=== PATIENT | female | born 1960 | race Caucasian/White ===

== ENCOUNTER → 2019-01-02 16:07 | Outpatient (CLI) | payer OTHER, SELFPAY ==
--- NOTE | 2019-01-02 | CYST_PTH ---
PATIENT: BINH TOBAR LOC: [facility] U#:[id number] AGE/SX: 65/F ROOM: RE01/02/[address]: Dr. Edwar Conde MD : 1960 BED: DIS: SPEC #: [id number] RECD: 01/02/19 15:18 STATUS: SEAN REWillem #: [id number] MAYRA: 01/02/19 00:[address]: Edwar Conde DEPT: SURGICAL PATHOLOGY RECD BY: Jordy Joe ENTERED: 01/05/19 10:04 SP TYPE: Cyst OTHR DR: Dr. Ivelisse Vela, [facility] Tissues: CYST Procedures: Surgery Specimen Level III HEADER OPERATION: Right index finger cyst excision PRE-OP DIAGNOSIS: Cyst, right index finger TISSUE SUBMITTED: Cyst, right index finger MICROSCOPIC DIAGNOSIS Cyst, right index finger: Ganglion cyst. FA:remigio 01/06/19 MICROSCOPIC DESCRIPTION Slides are reviewed. GROSS DESCRIPTION Received in fixative is one container labeled with the patient's name and designated cyst right index finger. The specimen consists of a portion of tamayo skin measuring 0.2 x 0.2 x 0.1 cm. The specimen is totally submitted in one cassette. / CE:remigio 01/05/19 TC:5 CPT: 86748
== END ==
PROVIDERS: Family Provider Internal Medicine; PCP Internal Medicine; Referring Provider Orthopaedic Surgery; Visit Provider Orthopaedic Surgery
DX: M25.841 Other specified joint disorders, right hand (principal)
CPT/HCPCS: 88304

== ENCOUNTER 2021-08-15 06:05 | Outpatient (CLI) | payer OTHER, SELFPAY ==
[2021-08-15 07:38] LABS: Absolute Lymphocyte Count 1.73 X10^3/uL (0.83-4.51); Absolute Neutrophil Count 3.1 X10^3/uL (2.0-7.7); Basophil# 0.02 X10^3/uL; Basophil% 0.4 % (0-1); Eosinophil# 0.18 X10^3/uL; Eosinophils% 3.2 % (0-5); Hematocrit 40.9 % (37-47); Hemoglobin 13.7 g/dL (12.0-15.0); Lymphocyte # 1.73 X10^3/ul (0.83-4.51); Mean Corp Hgb Conc 33.5 g/dL (32-36); Mean Corpuscular Hgb 30.9 pg (27.0-32.0); Mean Corpuscular Volume 92.1 fL (81-99); Mean Platelet Vol. 11.1 fl (6.2-12.0); NRBC Flagged by Analyzer 0 % (0-5); Neutrophil # 3.13 X10^3/uL (2.7-7.7); Platelet Count 267 K/mm3 (150-450); RBC Distribution Width CV 12.9 % (11.6-14.6); RBC Distribution Width SD 43.8 fl (35.1-43.9); Red Blood Count 4.44 M/mm3 (4.2-5.4); White Blood Count 5.6 K/mm3 (4.4-11.0)
[2021-08-15 08:20] LABS: ALB/GLOB Ratio 0.8 RATIO (0.9-2.4); AST(SGOT) 16 U/L (15-37); Alanine Aminotransfer ALT/SGPT 28 U/L (13-56); Albumin, Serum 3.6 g/dL (3.2-5.0); Alkaline Phosphatase 91 U/L (45-117); Anion Gap 2 (5-15); BUN 15 mg/dL (7-18); BUN/Creat Ratio 18.3 RATIO (10-20); Calcium,Total 8.7 mg/dL (8.5-10.1); Chloride 105 mmol/L (98-107); Cholesterol 276 mg/dL (200); Creatinine, Serum 0.82 mg/dL (0.55-1.02); EST Glomerular Filtration Rate 76 mL/min (>60); Est Glom Filt Rate - Afr Amer 92 mL/min (>60); Free T3 2.7 pg/mL (2.18-3.98); Globulin 4.4 g/dL (2.2-4.2); Glucose 126 mg/dL (74-106); High Density Lipoprotein 61 mg/dL; Potassium 3.6 mmol/L (3.5-5.1); Sodium Level 140 mmol/L (136-145); T4 Free Direct 1.14 ng/dL (0.76-1.46); Thyroid Stim Hormone (TSH) 1.52 uIU/mL (0.358-3.74); Triglycerides 72 mg/dL; Very Low Density Lipoprotein 14 mg/dL (5-40)
== END 2021-08-15 23:59 | disposition short-term general hospital (02) ==
PROVIDERS: PCP Internal Medicine; Referring Provider Nurse Practitioner; Visit Provider Nurse Practitioner
DX: R79.89 Other specified abnormal findings of blood chemistry (principal); Z13.220 Encounter for screening for lipoid disorders
CPT/HCPCS: 36415; 80053; 80061; 84439; 84443; 84481; 85025

== ENCOUNTER → 2023-03-13 | Outpatient (CLI) | payer OTHER, SELFPAY ==
--- NOTE | 2023-03-13 13:51 | BI_ITS ---
MAMMOGRAPHY - BILATERAL SCREENING REASON FOR EXAM: Female, 62 years old. Routine annual screening examination. PERTINENT HISTORY: Non-contributory. Prior left excisional breast biopsy. TECHNIQUE: Digital bilateral breast arthur (3D mammographic acquisition) in the CC and MLO projections. 2-D mediolateral oblique (MLO) and craniocaudad (CC) views of both breasts were obtained. CAD: Full Field Digital Mammography with Computer Added Detection was performed. COMPARISON: Comparison is made with prior outside examination dated July 12, 2009. FINDINGS: Breast Composition: The breasts are heterogeneously dense, which may obscure small masses. There are no dominant masses or suspicious calcifications. Stable benign-appearing bilateral axillary lymph nodes. No other significant abnormalities are identified. There has been no significant change since the prior study. BI/SCRN MAMM (CAD)W/ARTHUR BILAT IMPRESSION: Stable bilateral screening mammogram. Yearly follow-up mammogram recommended. (A) ASSESSMENT CATEGORY: BIRADS Category 2: Benign. A letter regarding these results will be sent to the patient by the facility within 30 days. Approximately 10% of breast cancers are not detected by mammography. A normal mammogram should not delay biopsy of a clinically suspicious abnormality. [id number] Electronically Signed: José Miguel Field MD at 14:40 EDT ,
== END | disposition home or self-care (01) ==
LOC: OPBD 13:48
PROVIDERS: PCP Internal Medicine; Referring Provider Nurse Practitioner Family; Visit Provider Nurse Practitioner Family
DX: Z12.31 Encounter for screening mammogram for malignant neoplasm of breast (principal)
CPT/HCPCS: 77063; 77067

== ENCOUNTER 2025-03-27 01:25 | Emergency (ER) | payer OTHER, SELFPAY ==
[2025-03-27 01:25] VITALS: BP 167/89; PULSE 71; RESP 16; TEMP 36.5; O2SAT 98; BMI 28.9
--- NOTE | 2025-03-27 01:44 | RAD_ITS ---
PROCEDURE: CHEST PA AND LATERAL 03/27/2025 REASON FOR EXAM: PALPITATIONS TECHNIQUE: Procedure Code: RADCXR Modality: DX Procedure: CHEST PA AND LATERAL COMPARISON: None FINDINGS: Hardware: EKG leads overlie the chest Heart: The heart size is normal. Mediastinum: The mediastinal contour is unremarkable. Lungs: The lungs are clear. Bones: The bones are unremarkable. RAD/Chest PA and Lateral IMPRESSION: No acute pulmonary process Reading Location: [id number]
--- NOTE | 2025-03-27 01:44 | EKG12_ITS ---
Test Reason : DYSRHYTHMIA Blood Pressure : */* mmHG Vent. Rate : 78 BPM Atrial Rate : 78 BPM P-R Int : 164 ms QRS Dur : 90 ms QT Int : 394 ms P-R-T Axes : 76 -18 13 degrees QTcB Int : 449 ms Normal sinus rhythm Normal ECG Confirmed by Everette Butler ([id number]), magazine editor ZACHERY ERWIN ([id number]) on 03/29/2025 1:11:55 PM Referred By: REINA Confirmed By: Everette Butler
--- NOTE | 2025-03-27 01:49 | EDS_ITS ---
HPI History of Present Illness Chief Complaint: Palpitations Narrative Narrative: Chief complaint and HPI: 64-year-old female with past medical history of proximal atrial fibrillation on metoprolol and Eliquis presents for evaluation of irregular heartbeat. Patient states for the past 2 to 3 days she feels that her heart is occasionally skipping a beat. She denies any fever, chills, shortness of breath, chest pain abdominal pain, nausea, vomiting, weakness. States she has been eating and drinking well. She did not inform her finger buff sewer at [facility]. Review of systems: See HPI Medications: As listed on the chart Allergies: As listed on the chart PFSH: Per chart Vital signs: As listed on the chart. Reviewed. Physical exam: Gen: A&O x3, no acute distress but anxious Head: Normocephalic, atraumatic Eyes: No sclera icterus, conjunctiva clear ENT: Moist mucous membranes Neck: Trachea midline, No JVD CV: RRR, no murmurs, no peripheral edema Resp: Lungs CTA BL, no w/r/c GI: Abd soft, non-distended, non-tender, no r/r/g Musc: Full ROM, no deformity Skin: Warm, dry Neuro: Alert, oriented, grossly intact, sensation intact Psych: Cooperative, anxious PFSH PFSH Medical History (Updated 03/27/25 @ 03:[address] Wagner Montejo DO) History of cardioversion (~11/2014) Hyperthyroidism Hyperlipidemia Paroxysmal atrial fibrillation Home Medications ?Medication ?Instructions ?Recorded ?Last Taken ?Type apixaban 5 mg tablet 5 mg PO BID #30 tabs 7 Unknown Rx metoprolol tartrate 50 mg tablet 50 mg PO BID #60 tabs 06/19/17 Unknown Rx Allergy/AdvReac Type Severity Reaction Status Date / Time No Known Allergies Allergy Verified 03/27/25 01:25 Family History (Updated 06/20/17 @ 15:48 by Nell Alcazar) Mother Heart disease atrial fib Brother Heart disease 2 brothers with atrial fib Surgical History (Updated 06/20/17 @ 15:47 by Nell Alcazar) H/O left breast biopsy Social History (Updated 06/20/17 @ 16:[address] Manuel Jimenez MD) Smoking Status: Never smoker alcohol intake: never substance use type: does not use EXAM Physical Exam Const Vital Signs: 03/27/25 01:25 03/27/25 01:25 03/27/25 02:25 Temperature 97.7 F L Temperature Source Temporal Pulse Rate 71 65 Respiratory Rate 16 18 Respiratory Effort Normal Non-Labored Blood Pressure 167/89 H 151/68 H Blood Pressure Mean 115 95 Pulse Ox 98 97 Oxygen Delivery Method Room Air Room Air MDM MDM MDM Narrative Medical decision making narrative: 64-year-old female with past medical history of proximal atrial fibrillation on metoprolol and Eliquis presents for evaluation of irregular heartbeat. Patient states for the past 2 to 3 days she feels that her heart is occasionally skipping a beat. She denies any fever, chills, shortness of breath, chest pain abdominal pain, nausea, vomiting, weakness. Differential diagnosis includes but is not limited to arrhythmia, electrolyte abnormality, dehydration, suspect less likely ACS. Laboratory workup ordered including chest x-ray. CBC without leukocytosis or anemia. Coagulation panel unremarkable. BMP unremarkable. Magnesium level unremarkable. Troponin unremarkable. BNP unremarkable. Patient has remained on the monitor without any arrhythmias. At this point in time, no clear etiology for her feelings of skipped heartbeats. Follow-up with finger buff sewer and PCP. Return back to ED if symptoms change or worsen. She confirmed understand the plan. Patient stable discharge home. EKG: Interpreted by me/EM physician: EKG shows normal sinus rhythm without any acute ischemic changes. Heart rate 78 QTc normal Diagnostic: Interpreted by me/EM physician: Chest x-ray without pneumonia, effusion, cardiomegaly, pneumothorax. Impression: 1. Reported skipped heartbeats Lab Data Labs: Laboratory Results - last 24 hr 03/27/25 01:38 WBC 6.4 RBC 4.38 Hgb 13.3 Hct 40.0 MCV 91.3 MCH 30.4 MCHC 33.3 RDW Std Deviation 44.6 H RDW Coeff of Rickey 13.2 Plt Count 264 MPV 10.4 Immature Gran % (Auto) 0.300 Neut % (Auto) 52.5 Lymph % (Auto) 34.5 Freeborn % (Auto) 10.1 H Eos % (Auto) 2.0 Baso % (Auto) 0.6 Absolute Neuts (auto) 3.4 Absolute Lymphs (auto) 2.22 Nucleated RBC % 0 PT 13.2 INR 1.0 APTT 25.3 Sodium 140 Potassium 4.0 Chloride 104 Carbon Dioxide 23.2 Anion Gap 13 BUN 18 Creatinine 0.88 Estim Creat Clear Calc 75.30 Est GFR (MDRD) Non-Af 73 BUN/Creatinine Ratio 20.7 H Glucose 141 H Calcium 9.1 Magnesium 2.2 Troponin T High Sens < 6 NT pro BNP II 155 Discharge Plan Triage Chief Complaint: Palpitations ED Provider: Wagner Montejo Dx/Rx/DC Orders Clinical Impression: Skipped heart beats Instructions: Arrhythmias Prescriptions: No Action apixaban 5 MG tablet 5 mg PO BID Qty: 30 0RF metoprolol tartrate 50 MG tablet 50 mg PO BID Qty: 60 0RF Primary Care Provider: Ivelisse Vela Referrals: Follow-up with your finger buff sewer [Other] - 3-5 Days Ivelisse Vela DO [Primary Care Provider] - 3-5 Days Activity Restrictions/Additional Instructions: Follow-up with your finger buff sewer. Return back to ED if symptoms change or worsen. Print Language: French Disposition Disposition: Home, Self Care
[2025-03-27 01:53] LABS: Hematocrit 40.0 % (37-47); Hemoglobin 13.3 g/dL (12.0-15.0); Immature Granulocytes Count 0.020 X10^3/uL (0.0-0.0); Mean Corp Hgb Conc 33.3 g/dL (32-36); Mean Corpuscular Volume 91.3 fL (81-99); Mean Platelet Vol. 10.4 fl (6.2-12.0); NRBC Flagged by Analyzer 0 % (0-5); Platelet Count 264 K/mm3 (150-450); RBC Distribution Width CV 13.2 % (11.6-14.6); RBC Distribution Width SD 44.6 fl (35.1-43.9); Red Blood Count 4.38 M/mm3 (4.2-5.4); White Blood Count 6.4 K/mm3 (4.4-11.0)
--- OUTSIDE RECORDS SUMMARY | 2025-03-27 01:57 | XMS RPT_ITS | CCD ---
Author Organization [facility] Care Team Providers Care Grocery Carrier Name Role Phone Everette Nielson Unavailable Unavailable Everette Nielson Unavailable Unavailable Everette Nielson Unavailable Unavailable Ivelisse Anderson Unavailable Evens Pierce Unavailable Mitra Philippe Unavailable Unavailable Unavailable Unavailable Evens Pierce Unavailable DR IVELISSE ANDERSON DO Primary Care Physician (3 ) Ivelisse Anderson DO Unavailable [phone] Evens Pierce MD Unavailable GravMitra acosta CMA Unavailable Unavailable Nurys Gleason LPN Unavailable Unavailable Unavailable Unavailable Shahid Henning LPN Unavailable Unavailable Unavailable Unavailable Terese Louis CNP Unavailable Jean Humphrey Unavailable Unavailable Primary Care Provider Unavailabl Ivelisse Fofana DO Unavailable [phone] Un[address] DR IVELISSE ANDERSON DO Primary Care Physician [phone] Terese Louis Unavailable Elizabeth Blanchard CNP Unavailable [phone] SLOAN MARSHALL MD Admitting Unavailable SLOAN MARSHALL MD Attending Unavailable SLOAN MARSHALL MD Primary Care Unavailable ONUR KITCHEN Consulting Gracevai lable PROVIDER, UNKNOWN Consulting Unavailable PROVIDER, UNKNOWN Consulting Unavailable PROVIDER, UNKNOWN Consulting Unavailable Earle Mccarty Attending Unavailable Ivelisse Anderson Referring Unavailable Ivelisse Anderson Primary Care Unavailable Allergies Allergy Classification Reported Allergen(s) Allergy Type Date of Onset Reaction(s) Facility (1 source) No Known Medication Allergies; Translations: [No Known Medication Allergies] Propensity to adverse reactions to drug (disorder) [facility] Repository Medications Current Medications Medication Drug Class(es) Dates Sig (Normalized) Sig (Original) amiodarone hydrochloride 200 mg oral tablet (2 sources) Antiarrhythmic Start: 08-17-2021 amiodarone 200 mg oral tablet Dose : 200 mg = 1 tab(s), Oral, qDay, # 90 tab(s), 0 Refill(s), Pharmacy: [facility]/pharmacy #[id number], 172.7, cm, 08/09/21 8:09:00 EST, Height, kg, 08/09/21 8:09:00 EST, Dosing Weight Start Date: 08/17/21 Status: Ordered Start: 08-09-2021 End: 08-16-2021 amiodarone 200 mg oral table t Dose : 200 mg = 1 tab(s), Oral, BID, # 14 tab(s), 0 Refill(s), Pharmacy: [facility]/pharmacy #[id number], 172.7, cm, 08/09/21 8:09:00 EST, Height, kg, 08/09/21 8:09:00 EST, Dosing Weight Start Date: 08/09/21 Stop Date: 08/16/21 Status: Ordered Co Q-10 100 mg oral capsule (1 source) Start: 09-24-2019 Co Q-10 100 mg oral capsule Dose : 100 mg = 1 cap(s), Oral, Daily, 0 Refill(s) Start Date: 09/24/19 Status: Ordered Fish Oils (2 sources) Start: 09-24-2019 take 1 mg by mouth once daily Fish Oil 1000 mg oral capsule mg = cap(s), Oral, qDay, 0 Refill(s) Start Date: 09/24/19 Status: Ordered ubidecarenone 100 mg oral capsule (1 source) Start: 09-24-2019 Co Q-10 100 mg oral capsule Dose : 100 mg = 1 cap(s), Oral, Daily, 0 Refill(s) Start Date: 09/24/19 Status: Ordered Vitamin D3 50 mcg (2000 intl units) oral capsule (2 sources) Start: 08-03-2021 Vitamin D3 50 mcg (2000 intl units) oral capsule Dose : 50 mcg = 1 cap(s), Oral, qDay, # 60 cap(s), 0 Refill(s) Start Date: 08/03/21 Status: Ordered Completed/Discontinued Medications Medication Drug Class(es) Dates Sig (Normalized) Sig (Original) amoxicillin 875 mg / clavulanate 125 mg oral tablet (16 sources) Penicillin-class Antibacterial Start: 12-06-2016 End: 12-16-2016 take 1 tablet by mouth twice daily Augmentin 875-125 MG Oral Tablet 1 Tablet BID for 10 days Quantity: 20 {Tablet} Refills: 0 Ordered: 06-Dec-2016 Radha Greene Start : 06-Dec-2016 End : 16-Dec-2016 Inactive apixaban 5 mg oral tablet (14 sources) Factor Xa Inhibitor Start: 08-18-2021 End: 03-11-2023 take 1 tablet by mouth twice daily Eliquis 5 mg oral tablet 1 (one) Tablet BID for 0 days Quantity: 60 {Tablet} Refills: 0 Ordered: 11-Mar-2023 Nurys Gleason LPN Start : 18-Aug-2021 End : 11-Mar-2023 Inactive Start: 06-19-2017 Eliquis 5 mg o ral tablet Dose : 5 mg = 1 tab(s), Oral, BID, # 60 tab(s), 4 Refill(s), Pharmacy: [facility]/pharmacy #[id number], 172.7, cm, 08/03/21 16:12:00 EST, Height, 86, kg, 08/03/21 16:12:00 EST, Dosing Weight Start Date: 08/03/21 Status: Ordered azelastine hydrochloride 0.137 mg/actuat / fluticasone propionate 0.05 mg/actuat metered dose nasal spray (16 sources) Corticosteroid, Histamine-1 Receptor Antagonist Start: 12-06-2016 End: 11-27-2018 take 1 spray(s) nasal route twice daily Dymista 137-50 MCG/ACT Nasal Suspension 1 (one) [place] In each nostril BID for 0 days Quantity: 1 {Bottle} Refills: 0 Ordered: 27-Nov-2018 Mitra Philippe CMA Start : 06-Dec-2016 End : 27-Nov-2018 Discontinued ciprofloxacin 500 mg oral tablet (20 sources) Quinolone Antimicrobial Start: 11-27-2018 End: 12-02-2018 take 1 tablet by mouth twice daily Cipro 500 MG Oral Tablet 1 (one) Tablet bid for 5 days Quantity: 10 {Tablet} Refills: 0 Ordered: 27-Nov-2018 Mirian BRICEÑO Ivelisse Santana DO Start : 27-Nov-2018 End : 02-Dec-2018 Inactive Start: 08-16-2008 End: 08-23-2008 take 1 tablet by mouth twice daily CIPRO, 250MG (Oral Tablet) 1 (one) Tablet Twice daily for 3 days Quantity: 19 {Tablet} Refills: 0 Ordered: 16-Aug-2008 KaitlinTerese brownlee Start : 16-Aug-2008 End : 23-Aug-2008 Inactive desoximetasone 2.5 mg/ml topical cream (16 sources) Corticosteroid Start: 01-13-2010 End: 06-19-2010 TOPICORT, 0.25% (External Cream) 1 (one) Cream bid for 0 days Quantity: 60 {Cream} Refills: 1 Ordered: 19-Jun-2010 Radha Dexter RN Start : 13-Jan-2010 End : 19-Jun-2010 Inactive 24 hr etodolac 400 mg extended release oral tablet (16 sources) Nonsteroidal Anti-inflammatory Drug Start: 10-19-2010 End: 03-07-2011 take 2 tablets by mouth once daily at mealtime ETODOLAC CR, 400MG (Oral Tablet Extended Release 24 Hour) 2 (two) Tablet ER 24HR qd with food for 0 days Quantity: 20 {Tablet_ER_24HR} Refills: 0 Ordered: 07-Mar-2011 Radha Dexter RN Start : 19-Oct-2010 End : 07-Mar-2011 Inactive flecainide acetate 50 mg oral tablet (20 sources) Antiarrhythmic Start: 10-12-2014 End: 11-30-2014 take 1 tablet by mouth twice daily FLECAINIDE ACETATE, 50MG (Oral Tablet) 1 (one) Tablet bid for 0 days Quantity: 60 {Tablet} Refills: 0 Ordered: 30-Nov-2014 Nurys Gleason LPN Start : 12-Oct-2014 End : 30-Nov-2014 Discontinued End: 11-02-2011 take 1 tablet by mouth twice daily FLECAINIDE ACETATE, 100MG (Oral Tablet) 1 tab bID for 0 days Refills: 0 Ordered: 02-Nov-2011 Radha Dexter RN End : 02-Nov-2011 Inactive metoprolol tartrate 50 mg oral tablet (20 sources) beta-Adrenergic Fred Start: 10-12-2014 End: 07-01-2024 take 50 mg by mouth twice daily Metoprolol Tartrate Discontinued 50 MG PO TWICE A DAY June 19, 2017 1:00am June 20, 2017 3:20pm End: 11-02-2011 take 1 tablet by mouth twice daily METOPROLOL SUCCINATE, 100MG (Oral Tablet Extended Release 24 Hour) 1 tab bID for 0 days Refills: 0 Ordered: 02-Nov-2011 Radha Dexter RN End : 02-Nov-2011 Inactive metroNIDAZOLE 0.0075 mg/mg vaginal gel (16 sources) Nitroimidazole Antimicrobial Start: 08-16-2008 METRONIDAZOLE, 0.75% (Vaginal Gel) 1 (one) Gel intravaginally daily x 5 days for 0 days Quantity: 5 {Gel} Refills: 0 Ordered: 21-Jul-2009 Radha Dexter RN Start : 16-Aug-2008 Inactive predniSONE 10 mg oral tablet (16 sources) Start: 01-13-2010 End: 06-19-2010 take 3 tablets by mouth once daily at mealtime PREDNISONE, 10MG (Oral Tablet) 3 (three) Tablet qd for 0 days Quantity: 30 Refills: 0 Ordered: 19-Jun-2010 Radha Dexter RN Start : 13-Jan-2010 End : 19-Jun-2010 Inactive Comments: with food in am Comment on above: with food in am rivaroxaban 20 mg oral tablet (16 sources) Factor Xa Inhibitor Start: 10-12-2014 End: 11-11-2014 take 1 tablet by mouth once daily XARELTO, 20MG (Oral Tablet) 1 (one) Tablet qd for 30 days Refills: 0 Ordered: 30-Nov-2014 Jasmin Clayton MD Start : 12-Oct-2014 End : 11-Nov-2014 Inactive sulfamethoxazole 800 mg / trimethoprim 160 mg oral tablet (16 sources) Dihydrofolate Reductase Inhibitor Antibacterial, Sulfonamide Antimicrobial Start: 11-30-2014 End: 12-07-2014 take 1 tablet by mouth twice daily BACTRIM DS, 800-160MG (Oral Tablet) 1 (one) Tablet bid for 7 days Quantity: 14 {Tablet} Refills: 0 Ordered: 30-Nov-2014 Terese Louis Start : 30-Nov-2014 End : 07-Dec-2014 Inactive Problems Active Problems Problem Classification Problem Date Documented Date Episodic/Chronic Administrative/social admission (3 sources) Medical examinations/reports status; Translations: [Well woman exam] 11-27-2018 Episodic Allergic reactions (20 sources) Contact dermatitis due to poison devon; Translations: [Poison devon] Resolved: 10-12-2014 05-31-2015 Episodic Anxiety disorders (20 sources) Anxiety; Translations: [Anxiety] 11-27-2018 Chronic Comment on above: thyriod hormones ck with evelio in Aug and normal suspect palpitations r/t anxietythyroid hormones done prior per lisbet Mae. Also saw cardiology. we don't have those notes. Cardiac dysrhythmias (20 sources) Atrial fibrillation; Translations: [Paroxysmal atrial fibrillation] 11-27-2018 Chronic Comment on above: [id number] score: 1 (gender) CARDIOVERSION 10/04/14 JPH 10/28/2012 in Atrial Fibrillation, Given IV Cardizem, converted spontaneously. Echo done 10/2012 EF 65%. Initial onset January 2004 with rapid Ventricular response in the setting of induced hypertension. Converted spontaneously. EF at that time was 68%. Treated with beta-blockers only. October of 2004 after reoccurrence was admitted and placed on Flecainide. Due to insurance issues patient has not had any followup since 2008 and had discontinued all of her medications. Sees Dr. Dong who co mes to [place], Aug [address] Dong who co mes to [place] RRR today. no palpit ations, on metoprolol. monitorSees Dr. Dong who comes to [place] Cardiac dysrhythmias (1 source) Palpitations; Translations: [Palpitations] Episodic Cardiac dysrhythmias (20 sources) Cardiac dysrhythmias Conduction disorders (20 sources) Conduction disorder of the heart; Translations: [Cardiac dysrhythmia] Resolved: 03-11-2023 11-27-2018 Chronic Coronary atherosclerosis and other heart disease (7 sources) Coronary atherosclerosis and other heart disease Diabetes mellitus without complication (20 sources) Impaired fasting glycemia; Translations: [Impaired fasting glucose] 08-18-2021 Episodic Comment on above: check [id number] on BMPh x gestational diabetes Disorders of lipid metabolism (20 sources) Hyperlipidemia; Translations: [Hyperlipidemia with target low density lipoprotein (LDL) cholesterol less than 100 mg/dL] 08-24-2019 Chronic Comment on above: 10/03/14 CHOL 235 TR IG 44 HDL 57 LDL 169 due for lipid panel, ordered today Genitourinary symptoms and ill-defined conditions (20 sources) Increased frequency of urination; Translations: [Urinary frequency] Resolved: 12-22-2008 06-22-2015 Episodic Comment on above: drink plentyof water Heart valve disorders (2 sources) Mitral valve prolapse 08-24-2019 Chronic Comment on above: history of. None bas ed on echo from 10/[address] Kitchen. Immunizations and screening for infectious disease (20 sources) Need for prophylactic vaccination and inoculation against influenza; Translations: [Has influenza vaccination at hospital] Resolved: 10-12-2014 08-24-2019 Episodic Comment on above: verified 2019 Inflammatory diseases of female pelvic organs (20 sources) Vaginitis and vulvovaginitis in diseases classified elsewhere; Translations: [Vaginitis and vulvovaginitis in diseases classified elsewhere] Resolved: 12-22-2008 10-12-2014 Episodic Neoplasms of unspecified nature or uncertain behavior (20 sources) Neoplasm of uncertain behavior of skin; Translations: [Neoplasm of uncertain behavior of skin] Resolved: 10-12-2014 05-30-2015 Episodic Nonmalignant breast conditions (20 sources) Discharge from nipple; Translations: [Breast discharge] Resolved: 10-12-2014 06-24-2015 Episodic Other circulatory disease (2 sources) Elevated blood-pressure reading without diagnosis of hypertension 08-24-2019 Episodic Other circulatory disease (8 sources) Elevated blood pressure; Translations: [Elevated blood pressure reading] 03-11-2023 Episodic Comment on above: limit salt. lifestyl e modifications. Keep BP log and bring with you to next appt limit salt. lifestyl e modifications. 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, CONGENITAL, SKIN NEC] 11-27-2018 Chronic Other connective tissue disease (19 sources) Pain in left foot; Translations: [Pain in left foot] 11-27-2018 Episodic Other connective tissue disease (20 sources) Spasm; Translations: [Muscle spasm] Resolved: 06-19-2010 10-12-2014 Episodic Other connective tissue disease (15 sources) Cramp in lower limb; Translations: [Leg cramps] 08-18-2021 Episodic Other endocrine disorders (20 sources) Disorder of endocrine system; Translations: [Hormone imbalance] 11-27-2018 Episodic Other injuries and conditions due to external causes (3 sources) Foreign body of foot; Translations: [Foreign body in foot, unspecified laterality, initial encounter] 11-27-2018 Episodic Comment on above: not currently presne t Other lower respiratory disease (20 sources) Cough; Translations: [Cough] Resolved: 03-11-2023 11-27-2018 Episodic Comment on above: from post nasal jaja damon.Leaving for vacation tomorrow-will send augmentin to take if pt gets worse-but told not to take unless needs it and pt agrees. Other non-traumatic joint disorders (20 sources) Knee pain; Translations: [Pain in unspecified knee] Resolved: 03-07-2011 10-12-2014 Episodic Other non-traumatic joint disorders (20 sources) Arthralgia of the ankle and/or foot; Translations: [Pain in joint involving ankle and foot, unspecified laterality] Resolved: 03-07-2011 05-31-2015 Episodic Other nutritional; endocrine; and metabolic disorders (20 sources) Body mass index 30+ - obesity; Translations: [BMI 30.0-30.9,adult] Resolved: 03-11-2023 11-27-2018 Chronic Other nutritional; endocrine; and metabolic disorders (2 sources) Overweight 08-24-2019 Episodic Other nutritional; endocrine; and metabolic disorders (9 sources) Body mass index 25-29 - overweight; Translations: [BMI 29.0-29.9,adult] 11-27-2018 Episodic Other nutritional; endocrine; and metabolic disorders (16 sources) Overweight in adulthood with body mass index of 25 or more but less than 30; Translations: [BMI 27.0-27.9,adult (Renamed from Body mass index (BMI) of 27.0 to 27.9 in adult)] 03-11-2023 Episodic Other screening for suspected conditions (not mental disorders or infectious disease) (20 sources) Raised TSH level; Translations: [Elevated TSH] 08-11-2021 Episodic Comment on above: increase co2, low A/ G, will check spep, hepatitis, mayra almeida, will repeat cmp first before adding those tests repeat 2 months. yolanda Velazquez 03/01/23 TSH was 0.895 Other skin disorders (3 sources) Senile hyperkeratosis; Translations: [Seborrheic keratoses] 11-27-2018 Episodic Comment on above: left arm Other skin disorders (20 sources) Actinic keratosis; Translations: [AK (actinic keratosis)] 11-27-2018 Episodic Comment on above: face Other skin disorders (17 sources) Seborrheic keratosis; Translations: [Seborrheic keratoses] 11-27-2018 Episodic Comment on above: left arm Other upper respiratory disease (20 sources) Allergic rhinitis; Translations: [Allergic rhinitis, mild] 11-27-2018 Chronic Other upper respiratory infections (20 sources) Acute sinusitis; Translations: [Acute sinusitis, unspecified] Resolved: 12-22-2008 04-19-2015 Episodic Residual codes; unclassified (3 sources) Increased body mass index; Translations: [BMI 29.0-29.9,adult] 11-27-2018 Episodic Residual codes; unclassified (20 sources) Non-smoker; Translations: [Non-smoker] 11-27-2018 Episodic Residual codes; unclassified (8 sources) Postmenopausal state; Translations: [Post-menopausal] 03-11-2023 Episodic Spondylosis; intervertebral disc disorders; other back problems (20 sources) Pain in thoracic spine; Translations: [Low back pain] Resolved: 03-07-2011 10-12-2014 Episodic Comment on above: per patient Sprains and strains (20 sources) Sprain of ankle, unspecified site; Translations: [SPRAIN OF ANKLE, NOS] Resolved: 10-12-2014 10-12-2014 Episodic Superficial injury; contusion (20 sources) Contusion of ankle; Translations: [Foreign body of foot] Resolved: 03-07-2011 10-12-2014 Episodic Comment on above: not currently presne t Thyroid disorders (2 sources) Hyperthyroidism 08-24-2019 Chronic Comment on above: mild, history of Unclassified (20 sources) Unclassified (20 sources) Non-smoker; Translations: [Non-smoker] 11-27-2018 Unclassified (20 sources) BMI 30.0-30.9,adult Unclassified (2 sources) Vaccine refused by parent 08-24-2019 Comment on above: verified 2019 Unclassified (7 sources) Abnormal blood chemistry Unclassified (7 sources) Leg cramps Urinary tract infections (20 sources) Urinary tract infectious disease; Translations: [Lower urinary tract infectious disease] 11-27-2018 Episodic Past or Other Problems Problem Classification Problem Date Documented Date Episodic/Chronic Other connective tissue disease (1 source) Pain in left foot; Translations: [Foot pain, left] 11-27-2018 Other non-traumatic joint disorders (13 sources) Pain in unspecified knee; Translations: [Knee pain] Resolved: 03-07-2011 10-12-2014 Episodic Residual codes; unclassified (3 sources) Needs influenza immunization; Translations: [Need for prophylactic vaccination and inoculation against influenza] Resolved: 10-12-2014 04-19-2015 Episodic Unclassified (20 sources) Muscle spasm (728.85) Unclassified (15 sources) Encounter for screening for malignant neoplasm of colon (Renamed from Special screening for malignant neoplasms, colon); Translations: [Screening status] 11-27-2018 Unclassified (20 sources) Unspecified Diagnosis Resolved: 12-22-2008 12-22-2008 Unclassified (20 sources) Lesion-Unknown behavior (238.2) Unclassified (20 sources) Ankle/Foot Pain (719.47) Unclassified (16 sources) Deliveries (Parity); Translations: [Deliveries (Parity)] 11-27-2018 Comment on above: 5 Unclassified (20 sources) Patient encounter status; Translations: [Encounter for gynecological examination without abnormal finding] 11-27-2018 Unclassified (16 sources) Pregnancies (); Translations: [Pregnancies ()] 11-27-2018 Comment on above: 5 Unclassified (20 sources) SYMPTOMS INVOLVING URINARY SYSTEM; URINARY FREQUENCY (788.41) Unclassified (20 sources) Well Woman Exam (V72.31) (Pap,Mammo,Routine Female) (Renamed from Well Woman V72.31 (p,m)) Unclassified (12 sources) Vaginitis and vulvovaginitis in diseases classified elsewhere (616.11) Unclassified (12 sources) Breast discharge (611.79) Unclassified (12 sources) SPRAIN OF ANKLE, NOS (845.00) Unclassified (12 sources) Foot pain, left Unclassified (12 sources) Foreign body in foot, unspecified laterality, initial encounter Unclassified (12 sources) AK (actinic keratosis) Unclassified (12 sources) Seborrheic keratoses Unclassified (12 sources) BMI 29.0-29.9,adult Unclassified (12 sources) Allergic rhinitis, mild Unclassified (12 sources) Encounter for screening mammogram for breast cancer (Renamed from Encounter for screening mammogram for malignant neoplasm of breast) Unclassified (12 sources) Screening for HPV (human papillomavirus) (Renamed from Encounter for screening for human papillomavirus (HPV)) Unclassified (20 sources) Encounter for screening for lipid disorder Unclassified (12 sources) ANOMALY, CONGENITAL, 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) Unclassified (12 sources) Poison devon (692.6) Unclassified (20 sources) Hormonal Imbalance (259.9) Unclassified (9 sources) Elevated TSH Results Test Name Value Interpretation Reference Range Facility Urgent Care Visit Reporton 1 09-06-2023 Urgent Care Visit Report [facility] [address], [address] [place] [address] OFFICE VISIT Date of Service: 07/06/24 MR#: [id number] Acct: [id number] Name: BINH TOBAR Rep #: [id number] : 1960 Provider: JACQUELINE Billings Age/Sex: 64/F Location: [facility] Status: Signed Intake Intake Visit Reasons: L INDEX FINGER LACERATION Allergies No Known Allergies Allergy (Verified 06/19/17 12:04) PFSH Medical History (Updated 06/20/17 @ 15:56 by Nell Alcazar) History of cardioversion ( 11/2014) Hyperthyroidism Hyperlipidemia Paroxysmal atrial fibrillation Surgical History (Updated 06/20/17 @ 15:47 by Nell Alcazar) H/O left breast biopsy Family History (Updated 06/20/17 @ 15:48 by Nell Alcazar) Mother Heart disease atrial fib Brother Heart disease 2 brothers with atrial fib Social History (Updated 06/20/17 @ 16:[address] Manuel Shaw MD) Smoking Status: Never smoker alcohol intake: never substance use type: does not use HPI HPI Details: BINH TOBAR, is a 64 F who presents to the office today for CALLED TO CANCEL EVAL AT 1720 Coding Level of Care Code No Charge 07/06/24 1721 Date Earle Luna Signature: Date (if applicable) CC: Normal [facility] LABORATORYOrdered By: SYSTEM SYSTEM on 03-01-2023 Basophils (Bld) [#/Vol] 0.0 103/mcL Invalid Interpretation Code 0.0 - 0.3 10^3/mcL Workflow SS Basophils/100 WBC (Bld) 0.5 % Invalid Interpretation Code 0.0 - 2.5 % Workflow SS Calcium [Mass/Vol] 9.4 mg/dL Invalid Interpretation Code 8.7 - 10.4 mg/dL AH ADM SS Chloride [Moles/Vol] 104 mmol/L Invalid Interpretation Code 98 - 110 mEq/L ADM SS CO2 [Moles/Vol] 31 mmol/L Invalid Interpretation Code 22 - 32 mEq/L AH ADM SS Creatinine [Mass/Vol] 0.66 mg/dL Invalid Interpretation Code 0.50 - 1.20 mg/dL AH ADM SS Electrolyte Balance 7.0 mEq/L Invalid Interpretation Code 4.0 - 15.0 mEq/L AH ADM SS Eosinophils (Bld) [#/Vol] 0.1 103/mcL Invalid Interpretation Code 0.0 - 0.7 10^3/mcL AH Workflow SS Eosinophils/100 WBC (Bld) 1.1 % Invalid Interpretation Code 0.0 - 6.0 % AH Workflow SS Erythrocyte distribution width (RBC) [Ratio] 13.8 % Invalid Interpretation Code 11.5 - 15.5 % Workflow SS GFR/1.73 sq M.predicted among blacks MDRD (S/P/Bld) [Vol rate/Area] ml/min/1.73sqm Invalid Interpretation Code [employer] S Comment on above: Interpretive Data: GFR Population mean for , Non- Americans Ages 20-29 = 116 mL/min/1.73 sq.m. Ages 30-39 = 107 mL/min/1.73 sq.m. Ages 40-49 = 99 mL/min/1.73 sq.m. Ages 50-59 = 93 mL/min/1.73 sq.m. Ages 60-69 = 85 mL/min/1.73 sq.m. Ages 70+ = 75 mL/min/1.73 sq.m. Chronic Kidney Disease: Less than 60 mL/min/1.73 square meters End Stage Renal Disease: Less than 15 mL/min/1.73 square meters GFR/1.73 sq M.predicted among non-blacks MDRD (S/P/Bld) [Vol rate/Area] ml/min/1.73sqm Invalid Interpretation Code [employer] S Comment on above: Interpretive Data: GFR Population mean for , Non- Americans Ages 20-29 = 116 mL/min/1.73 sq.m. Ages 30-39 = 107 mL/min/1.73 sq.m. Ages 40-49 = 99 mL/min/1.73 sq.m. Ages 50-59 = 93 mL/min/1.73 sq.m. Ages 60-69 = 85 mL/min/1.73 sq.m. Ages 70+ = 75 mL/min/1.73 sq.m. Chronic Kidney Disease: Less than 60 mL/min/1.73 square meters End Stage Renal Disease: Less than 15 mL/min/1.73 square meters Glucose [Mass/Vol] 119 mg/dL Invalid Interpretation Code 82 - 115 mg/dL ADM SS Hematocrit (Bld) [Volume fraction] 41.3 % Invalid Interpretation Code 34.0 - 46.0 % Workflow SS Hemoglobin (Bld) [Mass/Vol] 13.8 G/dL Invalid Interpretation Code 12.0 - 16.0 G/dL Workflow SS Lymphocytes (Bld) [#/Vol] 1.4 103/mcL Invalid Interpretation Code 0.9 - 4.3 10^3/mcL Workflow SS Lymphocytes/100 WBC (Bld) 26.0 % Invalid Interpretation Code 20.0 - 40.0 % AH Workflow SS Magnesium [Mass/Vol] 2.1 mg/dL Invalid Interpretation Code 1.6 - 2.4 mg/dL AH ADM SS MCH (RBC) [Entitic mass] 30.4 pg Invalid Interpretation Code 27.0 - 33.0 pg AH Workflow SS MCHC 33.3 G/dL Invalid Interpretation Code 32.0 - 36.0 G/dL AH Workflow SS MCV (RBC) [Entitic vol] 91.2 fL Invalid Interpretation Code 80.0 - 99.0 fL AH Workflow SS Monocytes (Bld) [#/Vol] 0.4 103/mcL Invalid Interpretation Code 0.1 - 1.4 10^3/mcL AH Workflow SS Monocytes/100 WBC (Bld) 7.7 % Invalid Interpretation Code 2.0 - 13.0 % AH Workflow SS Neutrophils (Bld) [#/Vol] 3.5 103/mcL Invalid Interpretation Code 2.3 - 8.1 10^3/mcL AH Workflow SS Neutrophils/100 WBC (Bld) 64.7 % Invalid Interpretation Code 50.0 - 75.0 % AH Workflow SS Platelet mean volume (Bld) [Entitic vol] 9.3 fL Invalid Interpretation Code 6.6 - 10.5 fL AH Workflow SS Platelets (Bld) [#/Vol] 246 103/mcL Invalid Interpretation Code 150 - 450 10^3/mcL AH Workflow SS Potassium [Moles/Vol] 4.5 mmol/L Invalid Interpretation Code 3.5 - 5.0 mEq/L AH ADM SS RBC (Bld) [#/Vol] 4.53 106/mcL Invalid Interpretation Code 4.10 - 5.30 10^6/mcL AH Workflow SS Sodium [Moles/Vol] 142 mmol/L Invalid Interpretation Code 136 - 145 mEq/L AH ADM SS TSH Qn 0.895 mIU/mL Invalid Interpretation Code 0.550 - 4.780 mIU/mL AH ADM SS Comment on above: Interpretive Data: * *Note - New Reference Range in effect 20 Urea nitrogen [Mass/Vol] 14.0 mg/dL Invalid Interpretation Code 8.0 - 22.0 mg/dL ADM SS Urea nitrogen/Creatinine [Mass ratio] 21.2 ratio Invalid Interpretation Code 10.0 - 22.0 ratio AH ADM SS WBC (Bld) [#/Vol] 5.4 103/mcL Invalid Interpretation Code 4.5 - 10.8 10^3/mcL Workflow SS .Auto Diffon 08-09-2021 Basophil, Absolute 0.00 10 3/mcL Normal 0.00-0.27 [facility] ([place]) Comment on above: Performed By: #### C BC, ADIFF, ANEU, PRO, BMP, GFR #### [address] [address] Basophils/100 WBC (Bld) 0.6 % Normal 0.0-2.5 [facility] ([place]) Comment on above: Performed By: #### C BC, ADIFF, ANEU, PRO, BMP, GFR #### [address] [address] Eosinophil, Absolute 0.10 10 3/mcL Normal 0.00-0.65 A [facility] ([place]) Comment on above: Performed By: #### C BC, ADIFF, ANEU, PRO, BMP, GFR #### [address] [address] Eosinophils/100 WBC (Bld) 1.9 % Normal 0.0-6.0 [facility] ([place]) Comment on above: Performed By: #### C BC, ADIFF, ANEU, PRO, BMP, GFR #### [address] [address] Lymphocyte, Absolute 1.50 10 3/mcL Normal 0.90-4.32 A [facility] ([place]) Comment on above: Performed By: #### C BC, ADIFF, ANEU, PRO, BMP, GFR #### [address] [address] Lymphocytes/100 WBC (Bld) 29.2 % Normal 20.0-40.0 [facility] ([place]) Comment on above: Performed By: #### C BC, ADIFF, ANEU, PRO, BMP, GFR #### [address] [address] Monocyte, Absolute 0.50 10 3/mcL Normal 0.09-1.40 [facility] ([place]) Comment on above: Performed By: #### C BC, ADIFF, ANEU, PRO, BMP, GFR #### [address] [address] Monocytes/100 WBC (Bld) 9.8 % Normal 2.0-13.0 [facility] ([place]) Comment on above: Performed By: #### C BC, ADIFF, ANEU, PRO, BMP, GFR #### [address] [address] Neutrophils/100 WBC (Bld) 58.5 % Normal 50.0-75.0 [facility] ([place]) Comment on above: Performed By: #### C BC, ADIFF, ANEU, PRO, BMP, GFR #### [address] [address] .GFRon 08-09-2021 GFR >60 Normal [facility] ([place]) Comment on above: Result Comment: GFR Population mean for , Non- Americans Ages 20-29 = 116 mL/min/1.73 sq.m. Ages 30-39 = 107 mL/min/1.73 sq.m. Ages 40-49 = 99 mL/min/1.73 sq.m. Ages 50-59 = 93 mL/min/1.73 sq.m. Ages 60-69 = 85 mL/min/1.73 sq.m. Ages 70+ = 75 mL/min/1.73 sq.m. Chronic Kidney Disease: Less than 60 mL/min/1.73 square meters End Stage Renal Disease: Less than 15 mL/min/1.73 square meters Performed By: #### C BC, ADIFF, ANEU, PRO, BMP, GFR #### [address] [address] GFR Non- >60 Normal [facility] ([place]) Comment on above: Result Comment: GFR Population mean for , Non- Americans Ages 20-29 = 116 mL/min/1.73 sq.m. Ages 30-39 = 107 mL/min/1.73 sq.m. Ages 40-49 = 99 mL/min/1.73 sq.m. Ages 50-59 = 93 mL/min/1.73 sq.m. Ages 60-69 = 85 mL/min/1.73 sq.m. Ages 70+ = 75 mL/min/1.73 sq.m. Chronic Kidney Disease: Less than 60 mL/min/1.73 square meters End Stage Renal Disease: Less than 15 mL/min/1.73 square meters Performed By: #### C BC, ADIFF, ANEU, PRO, BMP, GFR #### [address] [address] .NEUABSon 08-09-2021 Neutrophil, Absolute 2.90 10 3/mcL Normal 2.25-8.10 A [facility] ([place]) Comment on above: Performed By: #### C BC, ADIFF, ANEU, PRO, BMP, GFR #### [address] [address] BMPon 08-09-2021 BUN/Creatinine Ratio 23.5 ratio High 10.0-22.0 [facility] ([place]) Comment on above: Performed By: #### C BC, ADIFF, ANEU, PRO, BMP, GFR #### [place] [address] Calcium [Mass/Vol] 9.5 mg/dL Normal 8.7-10.4 [facility] ([place]) Comment on above: Result Comment: No te - New Reference Range in effect 20 Performed By: #### C BC, ADIFF, ANEU, PRO, BMP, GFR #### [address] [address] Chloride [Moles/Vol] 109 mmol/L Normal 98-110 [facility] ([place]) Comment on above: Performed By: #### C BC, ADIFF, ANEU, PRO, BMP, GFR #### [address] [address] CO2 [Moles/Vol] 26 mmol/L Normal 22-32 [facility] ([place]) Comment on above: Performed By: #### C BC, ADIFF, ANEU, PRO, BMP, GFR #### [address] [address] Creatinine [Mass/Vol] 0.81 mg/dL Normal 0.50-1.20 [facility] ([place]) Comment on above: Performed By: #### C BC, ADIFF, ANEU, PRO, BMP, GFR #### [place] [id number] Electrolyte Balance 8.0 mEq/L Normal 4.0-15.0 [facility] ([place]) Comment on above: Performed By: #### C BC, ADIFF, ANEU, PRO, BMP, GFR #### [place] [id number] Glucose [Mass/Vol] 131 mg/dL High 82-115 [facility] ([place]) Comment on above: Performed By: #### C BC, ADIFF, ANEU, PRO, BMP, GFR #### [place] [id number] Potassium [Moles/Vol] 4.2 mmol/L Normal 3.5-5.0 [facility] ([place]) Comment on above: Performed By: #### C BC, ADIFF, ANEU, PRO, BMP, GFR #### [place] [id number] Sodium [Moles/Vol] 143 mmol/L Normal 136-145 [facility] ([place]) Comment on above: Performed By: #### C BC, ADIFF, ANEU, PRO, BMP, GFR #### [place] [address] Urea nitrogen [Mass/Vol] 19.0 mg/dL Normal 8.0-22.0 [facility] ([place]) Comment on above: Performed By: #### C BC, ADIFF, ANEU, PRO, BMP, GFR #### [address] [address] CBCon 08-09-2021 Erythrocyte distribution width (RBC) [Ratio] 13.4 % Normal 11.5-15.5 [facility] ([place]) Comment on above: Performed By: #### C BC, ADIFF, ANEU, PRO, BMP, GFR #### [place] [phone] Hematocrit (Bld) [Volume fraction] 39.2 % Normal 34.0-46.0 [facility] ([place]) Comment on above: Performed By: #### C BC, ADIFF, ANEU, PRO, BMP, GFR #### [place] [address] Hgb 13.3 G/dL Normal 12.0-16.0 [facility] ([place]) Comment on above: Performed By: #### C BC, ADIFF, ANEU, PRO, BMP, GFR #### [place] [address] MCH (RBC) [Entitic mass] 30.7 pg Normal 27.0-33.0 [facility] ([place]) Comment on above: Performed By: #### C BC, ADIFF, ANEU, PRO, BMP, GFR #### [place] [address] MCHC 34.0 G/dL Normal 32.0-36.0 [facility] ([place]) Comment on above: Performed By: #### C BC, ADIFF, ANEU, PRO, BMP, GFR #### [place] [address] MCV (RBC) [Entitic vol] 90.5 fL Normal 80.0-99.0 [facility] ([place]) Comment on above: Performed By: #### C BC, ADIFF, ANEU, PRO, BMP, GFR #### [place] [address] Platelet 243 10 3/mcL Normal 150-450 [facility] ([place]) Comment on above: Performed By: #### C BC, ADIFF, ANEU, PRO, BMP, GFR #### [place] [address] Platelet mean volume (Bld) [Entitic vol] 8.7 fL Normal 6.6-10.5 [facility] ([place]) Comment on above: Performed By: #### C BC, ADIFF, ANEU, PRO, BMP, GFR #### [place] [address] RBC 4.33 10 6/mcL Normal 4.10-5.30 [facility] ([place]) Comment on above: Performed By: #### C BC, ADIFF, ANEU, PRO, BMP, GFR #### [place] [id number] [place] [address] WBC 5.00 10 3/mcL Normal 4.50-10.80 [facility] ([place]) Comment on above: Performed By: #### C BC, ADIFF, ANEU, PRO, BMP, GFR #### [address] [address] LABORATORYOrdered By: SYSTEM SYSTEM on 08-09-2021 Basophils (Bld) [#/Vol] 0.00 103/mcL Invalid Interpretation Code 0.00 - 0.27 10^3/mcL Remisol SS Basophils/100 WBC (Bld) 0.6 % Invalid Interpretation Code 0.0 - 2.5 % AH Remisol SS Calcium [Mass/Vol] 9.5 mg/dL Invalid Interpretation Code 8.7 - 10.4 mg/dL ADM SS Chloride [Moles/Vol] 109 mmol/L Invalid Interpretation Code 98 - 110 mEq/L ADM SS CO2 [Moles/Vol] 26 mmol/L Invalid Interpretation Code 22 - 32 mEq/L AH ADM SS Creatinine [Mass/Vol] 0.81 mg/dL Invalid Interpretation Code 0.50 - 1.20 mg/dL AH ADM SS Electrolyte Balance 8.0 mEq/L Invalid Interpretation Code 4.0 - 15.0 mEq/L AH ADM SS Eosinophils (Bld) [#/Vol] 0.10 103/mcL Invalid Interpretation Code 0.00 - 0.65 10^3/mcL AH Remisol SS Eosinophils/100 WBC (Bld) 1.9 % Invalid Interpretation Code 0.0 - 6.0 % AH Remisol SS Erythrocyte distribution width (RBC) [Ratio] 13.4 % Invalid Interpretation Code 11.5 - 15.5 % AH Remisol SS GFR/1.73 sq M.predicted among blacks MDRD (S/P/Bld) [Vol rate/Area] ml/min/1.73sqm Invalid Interpretation Code Chemistry S GFR/1.73 sq M.predicted among non-blacks MDRD (S/P/Bld) [Vol rate/Area] ml/min/1.73sqm Invalid Interpretation Code Chemistry S Glucose [Mass/Vol] 131 mg/dL Invalid Interpretation Code 82 - 115 mg/dL AH ADM SS Hematocrit (Bld) [Volume fraction] 39.2 % Invalid Interpretation Code 34.0 - 46.0 % AH Remisol SS Hemoglobin (Bld) [Mass/Vol] 13.3 G/dL Invalid Interpretation Code 12.0 - 16.0 G/dL AH Remisol SS Lymphocytes (Bld) [#/Vol] 1.50 103/mcL Invalid Interpretation Code 0.90 - 4.32 10^3/mcL AH Remisol SS Lymphocytes/100 WBC (Bld) 29.2 % Invalid Interpretation Code 20.0 - 40.0 % AH Remisol SS MCH (RBC) [Entitic mass] 30.7 pg Invalid Interpretation Code 27.0 - 33.0 pg AH Remisol SS MCHC (RBC) [Mass/Vol] 34.0 G/dL Invalid Interpretation Code 32.0 - 36.0 G/dL AH Remisol SS MCV (RBC) [Entitic vol] 90.5 fL Invalid Interpretation Code 80.0 - 99.0 fL AH Remisol SS Monocytes (Bld) [#/Vol] 0.50 103/mcL Invalid Interpretation Code 0.09 - 1.40 10^3/mcL AH Remisol SS Monocytes/100 WBC (Bld) 9.8 % Invalid Interpretation Code 2.0 - 13.0 % AH Remisol SS Neutrophils (Bld) [#/Vol] 2.90 103/mcL Invalid Interpretation Code 2.25 - 8.10 10^3/mcL AH Remisol SS Neutrophils/100 WBC (Bld) 58.5 % Invalid Interpretation Code 50.0 - 75.0 % AH Remisol SS Platelet mean volume (Bld) [Entitic vol] 8.7 fL Invalid Interpretation Code 6.6 - 10.5 fL AH Remisol SS Platelets (Bld) [#/Vol] 243 103/mcL Invalid Interpretation Code 150 - 450 10^3/mcL AH Remisol SS Potassium [Moles/Vol] 4.2 mmol/L Invalid Interpretation Code 3.5 - 5.0 mEq/L AH ADM SS RBC (Bld) [#/Vol] 4.33 106/mcL Invalid Interpretation Code 4.10 - 5.30 10^6/mcL AH Remisol SS Sodium [Moles/Vol] 143 mmol/L Invalid Interpretation Code 136 - 145 mEq/L AH ADM SS Urea nitrogen [Mass/Vol] 19.0 mg/dL Invalid Interpretation Code 8.0 - 22.0 mg/dL ADM SS Urea nitrogen/Creatinine [Mass ratio] 23.5 ratio Invalid Interpretation Code 10.0 - 22.0 ratio ADM SS WBC (Bld) [#/Vol] 5.00 103/mcL Invalid Interpretation Code 4.50 - 10.80 10^3/mcL AH Remisol SS LABORATORYOrdered By: Loretta Tolbert on 08-09-2021 INR Coag (PPP) [Relative time] 1.6 {INR} Invalid Interpretation Code AH Auto Coag SS PT Coag (PPP) [Time] 19.0 s Invalid Interpretation Code 9.0 - 14.9 seconds AH Auto Coag SS PROon 08-09-2021 INR Coag (PPP) [Relative time] 1.6 {INR} Normal [facility] ([place]) Comment on above: Result Comment: The [employer] (CHEST, 1992, 102:312S-25S) recommended therapeutic range for oral anticoagulant therapy is: LOW RISK: Prophylaxis of venous thrombosis INR: 2.0-3.0 Treatment of pulmonary embolism 2.0-3.0 Prevention of systemic embolism 2.0-3.0 HIGH RISK: Mechanical prosthetic valves 2.5-3.5 Performed By: #### C BC, ADIFF, ANEU, PRO, BMP, GFR #### [place] [id number] [place] [address] PT Coag (PPP) [Time] 19.0 s High 9.0-14.9 [facility] ([place]) Comment on above: Result Comment: Effe ctive 01/27/08, Protime results may be affected by some antibiotics (i.e. Ciprofloxacin, Azithromycin, Bactrim) which may potentiate the action of oral anticoagulants, with further increases in Protime/INR. Performed By: #### C BC, ADIFF, ANEU, PRO, BMP, GFR #### [place] [address] [place] [address] HPV automatic ([id number])Ordered By: Senior Designer/Art Director on 04-18-2016 HPV 16+18+31+33+35+39+45 +51+52+56+58+59+68 DNA Probe+sig amp Ql (Cvx) Negative Normal [facility] Work Phone: Comment on above: This high-risk HPV t est detects thirteen high-risk types(16/18/31/33/35/39/45/51/52/56/58/59/68) without differentiation. . Source.............C ervix;EndocervixNo. of containers..01 CYTYC Thin Prep VialPATIENT NOT FASTINGPERFORMED BY: LabredITYnvkljspfa[address] [id number] BY: =G [email or web address] [id number] Information: [id number] HPV 16+18+31+33+35+39+45 +51+52+56+58+59+68 DNA Probe+sig amp Ql (Cvx) Negative Normal [facility]; [facility] Work Phone: Comment on above: This high-risk HPV t est detects thirteen high-risk types(16/18/31/33/35/39/45/51/52/56/58/59/68) without differentiation. . Source.............C ervix;EndocervixNo. of containers..01 CYTYC Thin Prep VialPATIENT NOT FASTINGPERFORMED BY: [email or web address] [id number] BY: =G [email or web address] [id number] Information: [id number] Microscopic observation Other stain Nom (Unsp spec) . Normal [facility] Work Phone: Comment on above: Source.............C ervix;EndocervixNo. of containers..01 CYTYC Thin Prep VialPATIENT NOT FASTINGPERFORMED BY: T[employer] [place], [place] [address] [id number] BY: =G [employer] Zzicmfuazn[address] Ferguson StreetrRegional Hospital of Scranton [id number] Information: [id number] Pathology report final diagnosis Narrative SPRCS Normal [facility] Work Phone: Comment on above: NEGATIVE FOR INTRAEP ITHELIAL LESION AND MALIGNANCY.CELLULAR CHANGES ASSOCIATED WITH ATROPHY ARE PRESENT.Satisfactory for evaluation. Endocervical and/or squamous metaplasticcells (endocervical component) are present.Z11.51James Raleigh Patterson, Control Panel Builder (ASCP) Source.............C ervix;EndocervixNo. of containers..01 CYTYC Thin Prep VialPATIENT NOT FASTINGPERFORMED BY: WB LabLa Cartoonerie[address] PlazaIvera Medicalrleston [place] [id number] BY: =G [facility] Vuz[address]iefip[address] PlazaCharleston [place] [id number] Information: [id number] HPV automatic ([id number]) PAPSMR Normal [facility] Work Phone: Comment on above: The Pap smear is a s creening test designed to aid in the detection ofpremalignant and malignant conditions of the uterine cervix. It is not adiagnostic procedure and should not be used as the sole means of detectingcervical cancer. Both false-positive and false-negative reports do occur. .This liquid based ThinPrep(R) pap test was screened with theuse of an image guided system. Source.............C ervix;EndocervixNo. of containers..01 CYTYC Thin Prep VialPATIENT NOT FASTINGPERFORMED BY: WB [facility] Iytkxzkewr[address] PlazaCharleston [place] [id number] BY: =G [facility] Aqeuiuzwbk[address] PlazaCharleston [place] [id number] Information: [id number] Urinalysis, Office ([id number])on 11-30-2014 Bilirubin Ql (U) Negative Normal [facility] Work Phone: Bilirubin Ql (U) Negative Normal [facility]; [facility] Work Phone: Glucose Test strip (U) [Mass/Vol] Negative Normal [facility] Work Phone: Glucose Test strip (U) [Mass/Vol] Negative Normal [facility]; [facility] Work Phone: Hemoglobin Ql (U) Hemolyzed Small Normal [facility] Work Phone: Ketones Ql (U) Negative Normal [facility] Work Phone: Ketones Ql (U) Negative Normal [facility]; [facility] Work Phone: Nitrite Ql (U) Negative Normal [facility] Work Phone: Nitrite Ql (U) Negative Normal [facility]; [facility] Work Phone: pH (U) 6.5 [pH] Normal [facility] Work Phone: Protein Ql (U) Negative Normal [facility] Work Phone: Protein Ql (U) Negative Normal [facility]; [facility] Work Phone: Specific gravity (U) [Rel density] 1.010 1 Normal [facility] Work Phone: Urobilinogen (24H U) [Mass/Time] 2 mg/dL Normal [facility] Work Phone: Thin prep Pap ([id number])Ordered By: Radha Dextre on 08-13-2008 Microscopic observation Other stain Nom (Unsp spec) . Normal [facility] Work Phone: Comment on above: Source.............C ervical;EndocervicalLMP / Prev Treat...NRT=[id number]. of containers..01 CYTYC Thin Prep VialPATIENT NOT FASTINGClinical Information: ADD [id number] PERFORMED BY: [employer] [id number] Pathology report final diagnosis Narrative SPRCS Normal [facility] Work Phone: Comment on above: NEGATIVE FOR INTRAEP ITHELIAL LESION AND MALIGNANCY.Satisfactory for evaluation. Endocervical and/or squamous metaplasticcells (endocervical component) are present.Areas of partially obscuring exudate are present.V72.31 ; Routine gynecological examinationJacob Joseph Control Panel Builder (ASCP) Source.............C ervical;EndocervicalLMP / Prev Treat...SRA=[id number]. of containers..01 CYTYC Thin Prep VialPATIENT NOT FASTINGClinical Information: ADD [id number] PERFORMED BY: [employer] [address] [id number] Thin prep Pap ([id number]) PAPSMR Normal [facility] Work Phone: Comment on above: The Pap smear is a s creening test designed to aid in the detection ofpremalignant and malignant conditions of the uterine cervix. It is not adiagnostic procedure and should not be used as the sole means of detectingcervical cancer. Both false-positive and false-negative reports do occur. .The HPV DNA reflex criteria were not met with this specimen resulttherefore, no HPV testing was performed. . Source.............C ervical;EndocervicalLMP / Prev Treat...VFN=[id number]. of containers..01 CYTYC Thin Prep VialPATIENT NOT FASTINGClinical Information: ADD [id number] PERFORMED BY: [employer] [address] [id number] URINE JOANN CULTURE-JANE COL C OUNT ([id number])Ordered By: Ivelisse Anderson on 08-13-2008 Bacteria identified Cx Nom (U) Final report Normal [facility] Work Phone: Comment on above: PATIENT NOT FASTINGC linical Information: SRC:UR ADD [id number] PERFORMED BY: [employer] Ddueqg5478 [facility] [id number] Bacteria identified Cx Nom (U) MUG Normal [facility] Work Phone: Comment on above: Mixed urogenital olamide ra25,000-50,000 colony forming units per mL PATIENT NOT FASTINGC linical Information: SRC:UR ADD [id number] PERFORMED BY: [facility] Hedcev7465 [facility] [id number] Urinalysis, Office (21456)on 08-13-2008 Bilirubin Ql (U) Negative Normal [facility] Work Phone: Comment on above: done aw Bilirubin Ql (U) Negative Normal [facility]; [facility] Work Phone: Comment on above: done aw Glucose Test strip (U) [Mass/Vol] Negative Normal [facility] Work Phone: Comment on above: done aw Glucose Test strip (U) [Mass/Vol] Negative Normal [facility]; [facility] Work Phone: Comment on above: done aw Hemoglobin Ql (U) Non Hemolyzed Trace Normal [facility] Work Phone: Comment on above: done aw Ketones Ql (U) Negative Normal [facility] Work Phone: Comment on above: done aw Ketones Ql (U) Negative Normal [facility]; [facility] Work Phone: Comment on above: done aw Leukocyte esterase Test strip Ql (U) Negative Normal [facility] Work Phone: Comment on above: aw done aw Leukocyte esterase Test strip Ql (U) Negative Normal [facility]; [facility] Work Phone: Comment on above: aw done aw Nitrite Ql (U) Negative Normal [facility] Work Phone: Comment on above: done aw Nitrite Ql (U) Negative Normal [facility]; [facility] Work Phone: Comment on above: done aw pH (U) 6.5 [pH] Normal [facility] Work Phone: Comment on above: done aw Protein Ql (U) Negative Normal [facility] Work Phone: Comment on above: done aw Protein Ql (U) Negative Normal [facility]; [facility] Work Phone: Comment on above: done aw Specific gravity (U) [Rel density] 1.010 1 Normal [facility] Work Phone: Comment on above: done aw Urobilinogen (24H U) [Mass/Time] Normal Normal [facility] Work Phone: Comment on above: done aw Vital Signs Date Time Vital Sign Value Performing Clinician Facility 03-11-2023 10:38-0400 Body height 172.72 cm Nurys Crouchrb INSULATION MANAGER [facility]; [facility] Work Phone: 03-11-2023 10:38-0400 Body mass index (BMI) [Ratio] 27.52 kg/m2 Nurys Slarb INSULATION MANAGER [facility]; [facility] Work Phone: 03-11-2023 10:38-0400 Body surface area Derived from formula 1.96 m2 Nurys Slarb INSULATION MANAGER [facility]; [facility] Work Phone: 03-11-2023 10:38-0400 Body temperature 97.1 [degF] Nurys Slarb INSULATION MANAGER [facility]; [facility] Work Phone: Comment on above: Method: Temporal 03-11-2023 10:38-0400 Body weight 82.1 kg Nurys Slarb INSULATION MANAGER [facility]; [facility] Work Phone: 03-11-2023 10:38-0400 Diastolic blood pressure 90 mm[Hg] Nurys Slarb INSULATION MANAGER [facility]; [facility] Work Phone: Comment on above: Patient Position: Sitting; Cuff Location : Left Arm; Cuff Size: Standard 03-11-2023 10:38-0400 Heart rate 61 /min Nurys Slarb INSULATION MANAGER [facility]; [facility] Work Phone: Comment on above: Pattern: Regular 03-11-2023 10:38-0400 Respiratory rate 15 /min Nurys Slarb INSULATION MANAGER [facility]; [facility] Work Phone: Comment on above: Pattern: Unlabored 03-11-2023 10:38-0400 SaO2% (BldA) [Mass fraction] 99 % Nurys Gleason [facility]; [facility] Work Phone: Comment on above: Room air 03-11-2023 10:38-0400 Systolic blood pressure 142 mm[Hg] Nurys Gleason [facility]; [facility] Work Phone: Comment on above: Patient Position: Sitting; Cuff Location : Left Arm; Cuff Size: Standard 08-18-2021 08:32-0500 Body height 172.72 cm Shahid Juvencio [facility]; [facility] Work Phone: Comment on above: will check vitals and report to [facility] 08-18-2021 08:32-0500 Body mass index (BMI) [Ratio] 30.11 kg/m2 Shahid Henning [facility]; [facility] Work Phone: Comment on above: will check vitals and report to [facility] 08-18-2021 08:32-0500 Body surface area Derived from formula 2.04 m2 Shahid Henning INSULATION MANAGER [facility]; [facility] Work Phone: Comment on above: will check vitals and report to [facility] 08-18-2021 08:32-0500 Body weight 89.81 kg Shahid Juvencio INSULATION MANAGER [facility]; [facility] Work Phone: Comment on above: will check vitals and report to [facility] 08-18-2021 08:32-0500 Diastolic blood pressure 64 mm[Hg] Terese Louis VICE PRESIDENT RESEARCH Work Phone: [facility]; [facility] Work Phone: Comment on above: Patient Position: Supine; Cuff Location: Right Arm; Cuff Size: Standard 08-18-2021 08:32-0500 Heart rate 58 /min Terese Louis VICE PRESIDENT RESEARCH Work Phone: [facility]; [facility] Work Phone: Comment on above: Pattern: Regular 08-18-2021 08:32-0500 Systolic blood pressure 125 mm[Hg] Terese Louis VICE PRESIDENT RESEARCH Work Phone: [facility]; [facility] Work Phone: Comment on above: Patient Position: Supine; Cuff Location: Right Arm; Cuff Size: Standard 08-09-2021 11:45-0500 Diastolic blood pressure 70 mm[Hg] JONATHON ABBOTT MD [facility] 08-09-2021 11:45-0500 Heart rate 72 /min JONATHON ABBOTT MD [facility] 08-09-2021 11:45-0500 Mean blood pressure 90 mm[Hg] JONATHON ABBOTT MD [facility] 08-09-2021 11:45-0500 Respiratory rate 16 /min JONATHON ABBOTT MD [facility] 08-09-2021 11:45-0500 Systolic blood pressure 130 mm[Hg] JONATHON ABBOTT MD [facility] 08-09-2021 11:31-0500 Diastolic Blood Pressure NBP 52 1 JONATHON ABBOTT MD [facility] 08-09-2021 11:31-0500 Heart rate 72 /min JONATHON ABBOTT MD [facility] 08-09-2021 11:31-0500 Respiratory rate 16 /min JONATHON ABBOTT MD [facility] 08-09-2021 11:31-0500 Systolic Blood Pressure NBP 118 1 JONATHON ABBOTT MD [facility] 08-09-2021 11:26-0500 Diastolic Blood Pressure NBP 47 1 JONATHON ABBOTT MD [facility] 08-09-2021 11:26-0500 Heart rate 74 /min JONATHON ABBOTT MD [facility] 08-09-2021 11:26-0500 Respiratory rate 16 /min JONATHON ABBOTT MD [facility] 08-09-2021 11:26-0500 Systolic Blood Pressure NBP 120 1 JONATHON ABBOTT MD [facility] 08-09-2021 11:21-0500 Diastolic Blood Pressure NBP 47 1 JONATHON ABBOTT MD [facility] 08-09-2021 11:21-0500 Systolic Blood Pressure NBP 120 1 JONATHON ABBOTT MD [facility] 08-09-2021 11:20-0500 Heart rate 65 /min JONATHON ABBOTT MD [facility] 08-09-2021 11:06-0500 Heart rate 105 /min JONATHON ABBOTT MD [facility] 08-09-2021 08:09-0500 Body height 172.7 cm JONATHON ABBOTT MD [facility] 08-09-2021 08:09-0500 Body temperature 98.24 [degF] JONATHON ABBOTT MD [facility] 08-09-2021 08:09-0500 Body weight 85.1 kg JONATHON ABBOTT MD [facility] 08-09-2021 08:09-0500 diastolic 48 mm[Hg] JONATHON ABBOTT MD [facility] 08-09-2021 08:09-0500 Heart rate 82 /min JONATHON ABBOTT MD [facility] 08-09-2021 08:09-0500 systolic 136 mm[Hg] JONATHON ABBOTT MD [facility] 11-27-2018 07:13-0400 BMI (Body Mass Index) 30.11 kg/m2 Mitra Philippe [facility] Work Phone: 11-27-2018 07:13-0400 Body Temperature 96.8 [degF] Mitra Philippe [facility] Internal [facility] Work Phone: Comment on above: Method: Temporal 11-27-2018 07:13-0400 Body weight 89.81 kg Mitra Philippe [facility] Internal [facility] Work Phone: 11-27-2018 07:13-0400 BP Diastolic 90 mm[Hg] Mitra Philippe [facility] Internal [facility] Work Phone: Comment on above: Patient Position: Sitting; Cuff Location : Left Arm; Cuff Size: Standard 11-27-2018 07:13-0400 BP Systolic 142 mm[Hg] Mitra Philippe [facility] Internal [facility] Work Phone: Comment on above: Patient Position: Sitting; Cuff Location : Left Arm; Cuff Size: Standard 11-27-2018 07:13-0400 BSA (Body Surface Area) 2.04 m2 Mitra Philippe [facility] Internal Medicine Work Phone: 11-27-2018 07:13-0400 Height 172.72 cm Mitra Philippe [facility] Internal Medicine Work Phone: 11-27-2018 07:13-0400 Pulse (Heart Rate) 63 /min Mitra Philippe [facility] Internal Medicine Work Phone: Comment on above: Pattern: Regular 11-27-2018 07:13-0400 Pulse Oximetry 96 % Ivelisse Anderson [facility] Internal Medicine Work Phone: Comment on above: Room air 05-16-2019 07:13-0400 Respiratory Rate 18 /min Mitra Philippe [employer] SCIENTIST [facility] Work Phone: Comment on above: Pattern: Unlabored 11-27-2018 07:13-0400 SaO2% (BldA) [Mass fraction] 96 % Mitra Philippe CMA [facility]; [facility] Work Phone: Comment on above: Room air 11-27-2018 07:13-0400 Weight 89.81 kg Ivelisse Anderson [facility] Work Phone: 12-06-2016 09:29-0400 BMI (Body Mass Index) 29.06 kg/m2 Radha Dexter RN [facility] Work Phone: 12-06-2016 09:29-0400 Body weight 86.69 kg Rdaha Dexter RN [facility] Work Phone: 12-06-2016 09:29-0400 BP Diastolic 80 mm[Hg] Radha Dexter RN [facility] Work Phone: Comment on above: Patient Position: Sitting; Cuff Location : Left Arm; Cuff Size: Large 12-06-2016 09:29-0400 BP Systolic 138 mm[Hg] Radha Dexter RN [facility] Work Phone: Comment on above: Patient Position: Sitting; Cuff Location : Left Arm; Cuff Size: Large 12-06-2016 09:29-0400 BSA (Body Surface Area) 2.01 m2 Radha Dexter RN [facility] Work Phone: 12-06-2016 09:29-0400 Height 172.72 cm Radha Dexter RN [facility] Work Phone: 12-06-2016 09:29-0400 Pulse (Heart Rate) 76 /min Radha Dexter RN [facility] Work Phone: Comment on above: Pattern: Regular 12-06-2016 09:29-0400 Pulse Oximetry 98 % Ivelisse Anderson [facility] Work Phone: Comment on above: Room air 12-06-2016 09:29-0400 Respiratory Rate 18 /min Radha Dexter RN [facility] Work Phone: Comment on above: Pattern: Unlabored 12-06-2016 09:29-0400 SaO2% (BldA) [Mass fraction] 98 % Rdaha Dexter RN [facility]; [facility] Work Phone: Comment on above: Room air 12-06-2016 09:29-0400 Weight 86.69 kg Ivelisse Anderson [facility] Work Phone: 04-18-2016 11:25-0400 BMI (Body Mass Index) 29.06 kg/m2 Radha Dexter RN [facility] Work Phone: 04-18-2016 11:25-0400 Body weight 86.69 kg Radha Dexter RN [facility] Work Phone: 04-18-2016 11:25-0400 BP Diastolic 84 mm[Hg] Radha Dexter RN [facility] Work Phone: Comment on above: Patient Position: Sitting; Cuff Location : Left Arm; Cuff Size: Large 04-18-2016 11:25-0400 BP Systolic 148 mm[Hg] Radha Dexter RN [facility] Work Phone: Comment on above: Patient Position: Sitting; Cuff Location : Left Arm; Cuff Size: Large 04-18-2016 11:25-0400 BSA (Body Surface Area) 2.01 m2 Radha Dexter RN [facility] Work Phone: 04-18-2016 11:25-0400 Height 172.72 cm Radha Dexter RN [facility] Work Phone: 04-18-2016 11:25-0400 Pulse (Heart Rate) 70 /min Radha Dexter RN [facility] Work Phone: Comment on above: Pattern: Regular 04-18-2016 11:25-0400 Pulse Oximetry 98 % Ivelisse Anderson [facility] Work Phone: Comment on above: Room air 04-18-2016 11:25-0400 Respiratory Rate 18 /min Radha Dexter RN [facility] Work Phone: Comment on above: Pattern: Unlabored 04-18-2016 11:25-0400 SaO2% (BldA) [Mass fraction] 98 % Radha Dexter RN [facility]; [facility] Work Phone: Comment on above: Room air 04-18-2016 11:25-0400 Weight 86.69 kg Ivelisse Anderson [facility] Work Phone: 11-30-2014 09:18-0400 BMI (Body Mass Index) 28.05 kg/m2 Nurys Slarb INSULATION MANAGER [facility] Work Phone: 11-30-2014 09:18-0400 Body Temperature 97.8 [degF] Nurys Slarb INSULATION MANAGER [facility] Work Phone: 11-30-2014 09:18-0400 Body weight 83.69 kg Nurys Slarb INSULATION MANAGER [facility] Work Phone: 11-30-2014 09:18-0400 BP Diastolic 72 mm[Hg] Nurys Slarb INSULATION MANAGER [facility] Work Phone: Comment on above: Patient Position: Sitting; Cuff Location : Left Arm; Cuff Size: Standard 11-30-2014 09:18-0400 BP Systolic 124 mm[Hg] Nurys Slarb INSULATION MANAGER [facility] Work Phone: Comment on above: Patient Position: Sitting; Cuff Location : Left Arm; Cuff Size: Standard 11-30-2014 09:18-0400 BSA (Body Surface Area) 1.98 m2 Nurys Slarb INSULATION MANAGER [facility] Work Phone: 11-30-2014 09:18-0400 Height 172.72 cm Nurys Slarb INSULATION MANAGER [facility] Work Phone: 11-30-2014 09:18-0400 Pulse (Heart Rate) 62 /min Nurys Slarb INSULATION MANAGER Comprehens[facility] e [facility] Work Phone: Comment on above: Pattern: Regular 11-30-2014 09:18-0400 Pulse Oximetry 98 % Ivelisse Anderson [facility] Work Phone: Comment on above: Room air 11-30-2014 09:18-0400 Respiratory Rate 16 /min Nurys Slarb INSULATION MANAGER [facility] Work Phone: Comment on above: Pattern: Unlabored 11-30-2014 09:18-0400 SaO2% (BldA) [Mass fraction] 98 % Nurys Gleason LPN [facility]; [facility] Work Phone: Comment on above: Room air 11-30-2014 09:18-0400 Weight 83.69 kg Ivelisse Anderson [facility] Work Phone: 03-26-2012 10:190400 BMI (Body Mass Index) 27 kg/m2 Radha Dexter RN [facility] Work Phone: 03-26-2012 10:0400 Body Temperature 99 [degF] Radha Dexter RN [facility] Work Phone: Comment on above: Method: Oral 03-26-2012 10:190400 Body weight 80.54 kg Radha Dexter RN [facility] Work Phone: 03-26-2012 10:19-0400 BP Diastolic 70 mm[Hg] Radha Dexter RN [facility] Work Phone: Comment on above: Patient Position: Sitting; Cuff Location : Left Arm; Cuff Size: Large 03-26-2012 10:19-0400 BP Systolic 124 mm[Hg] Radha Dexter RN [facility] Work Phone: Comment on above: Patient Position: Sitting; Cuff Location : Left Arm; Cuff Size: Large 03-26-2012 10:190400 BSA (Body Surface Area) 1.94 m2 Radha Dexter RN [facility] Work Phone: 03-26-2012 10:190400 Height 172.72 cm Radha Dexter RN [facility] Work Phone: 03-26-2012 10:19-0400 Pulse (Heart Rate) 60 /min Radha Dexter RN [facility] Work Phone: Comment on above: Pattern: Regular 03-26-2012 10:190400 Respiratory Rate 20 /min Radha Dexter RN [facility] Work Phone: Comment on above: Pattern: Unlabored 03-26-2012 10:19-0400 Weight 80.54 kg Ivelisse Anderson [facility] Work Phone: 11-02-2011 10:58-0400 BMI (Body Mass Index) 27.88 kg/m2 Radha Dexter RN [facility] Work Phone: 11-02-2011 10:58-0400 Body weight 83.18 kg Radha Dexter RN [facility] Work Phone: 11-02-2011 10:58-0400 BP Diastolic 82 mm[Hg] Radha Dexter RN [facility] Work Phone: Comment on above: Patient Position: Sitting; Cuff Location : Left Arm; Cuff Size: Large 11-02-2011 10:58-0400 BP Systolic 162 mm[Hg] Radha Dexter RN [facility] Work Phone: Comment on above: Patient Position: Sitting; Cuff Location : Left Arm; Cuff Size: Large 11-02-2011 10:58-0400 BSA (Body Surface Area) 1.97 m2 Radha Dexter RN [facility] Work Phone: 11-02-2011 10:58-0400 Height 172.72 cm Radha Dexter RN [facility] Work Phone: 11-02-2011 10:58-0400 Pulse (Heart Rate) 80 /min Radha Dexter RN [facility] Work Phone: Comment on above: Pattern: Regular 11-02-2011 10:58-0400 Respiratory Rate 16 /min Radha Dexter RN [facility] Work Phone: Comment on above: Pattern: Unlabored 11-02-2011 10:58-0400 Weight 83.18 kg Ivelisse Anderson [facility] Work Phone: 03-07-2011 15:42-0400 BMI (Body Mass Index) 29.5 kg/m2 Radha Dexter RN [facility] Work Phone: 03-07-2011 15:42-0400 Body Temperature 98.9 [degF] Radha Dexter RN [facility] Work Phone: Comment on above: Method: Oral 03-07-2011 15:42-0400 Body weight 88 kg Radha Dexter RN [facility] Work Phone: 03-07-2011 15:42-0400 BP Diastolic 80 mm[Hg] Radha Dexter RN [facility] Work Phone: Comment on above: Patient Position: Sitting; Cuff Location : Left Arm; Cuff Size: Large 03-07-2011 15:42-0400 BP Systolic 122 mm[Hg] Radha Dexter RN [facility] Work Phone: Comment on above: Patient Position: Sitting; Cuff Location : Left Arm; Cuff Size: Large 03-07-2011 15:42-0400 BSA (Body Surface Area) 2.02 m2 Radha Dexter RN [facility] Work Phone: 03-07-2011 15:42-0400 Height 172.72 cm Radha Dexter RN [facility] Work Phone: 03-07-2011 15:42-0400 Pulse (Heart Rate) 68 /min Radha Dexter RN [facility] Work Phone: Comment on above: Pattern: Regular 03-07-2011 15:42-0400 Respiratory Rate 20 /min Radha Dexter RN [facility] Work Phone: Comment on above: Pattern: Unlabored 03-07-2011 15:42-0400 Weight 88 kg Ivelisse Anderson [facility] Work Phone: 10-19-2010 10:19-0400 BMI (Body Mass Index) 29.88 kg/m2 Radha Dexter RN [facility] Work Phone: 10-19-2010 10:19-0400 Body weight 89.13 kg Radha Dexter RN [facility] Work Phone: 10-19-2010 10:19-0400 BP Diastolic 80 mm[Hg] Radha Dexter RN [facility] Work Phone: Comment on above: Patient Position: Sitting; Cuff Location : Left Arm; Cuff Size: Large 10-19-2010 10:19-0400 BP Systolic 128 mm[Hg] Radha Dexter RN [facility] Work Phone: Comment on above: Patient Position: Sitting; Cuff Location : Left Arm; Cuff Size: Large 10-19-2010 10:19-0400 BSA (Body Surface Area) 2.03 m2 Radha Dexter RN [facility] Work Phone: 10-19-2010 10:19-0400 Height 172.72 cm Radha Dexter RN [facility] Work Phone: 10-19-2010 10:19-0400 Pulse (Heart Rate) 60 /min Radha Dexter RN [facility] Work Phone: Comment on above: Pattern: Regular 10-19-2010 10:19-0400 Respiratory Rate 20 /min Radha Dexter RN [facility] Work Phone: Comment on above: Pattern: Unlabored 10-19-2010 10:19-0400 Weight 89.13 kg Ivelisse Anderson [facility] Work Phone: 06-19-2010 14:43-0500 Body weight 90.86 kg Radha Dexter RN [facility] Work Phone: 06-19-2010 14:43-0500 BP Diastolic 80 mm[Hg] Radha Dexter RN [facility] Work Phone: Comment on above: Patient Position: Sitting; Cuff Location : Left Arm; Cuff Size: Standard 06-19-2010 14:43-0500 BP Systolic 152 mm[Hg] Radha Dexter RN [facility] Work Phone: Comment on above: Patient Position: Sitting; Cuff Location : Left Arm; Cuff Size: Standard 06-19-2010 14:43-0500 Pulse (Heart Rate) 64 /min Radha Dexter RN [facility] Work Phone: Comment on above: Pattern: Regular 06-19-2010 14:43-0500 Respiratory Rate 20 /min Radha Dexter RN [facility] Work Phone: Comment on above: Pattern: Unlabored 06-19-2010 14:43-0500 Weight 90.86 kg Ivelisse Anderson [facility] Work Phone: 01-13-2010 10:31-0400 BP Diastolic 86 mm[Hg] Theresa Carlton [facility] Work Phone: Comment on above: Patient Position: Sitting; Cuff Location : Left Arm; Cuff Size: Standard 01-13-2010 10:31-0400 BP Systolic 146 mm[Hg] Theresa Carlton [facility] Work Phone: Comment on above: Patient Position: Sitting; Cuff Location : Left Arm; Cuff Size: Standard 01-13-2010 10:31-0400 Pulse (Heart Rate) 68 /min Theresa Carlton [facility] Work Phone: Comment on above: Pattern: Regular 01-13-2010 10:31-0400 Respiratory Rate 18 /min Theresa Carlton [facility] Work Phone: Comment on above: Pattern: Unlabored 12-16-2009 10:35-0400 Body weight 83.92 kg Ivelisse Anderson [facility] Work Phone: 12-16-2009 10:35-0400 BP Diastolic 70 mm[Hg] Ivelisse Anderson [facility] Work Phone: Comment on above: Patient Position: Sitting; Cuff Location : Left Arm; Cuff Size: Standard 12-16-2009 10:35-0400 BP Systolic 116 mm[Hg] Ivelisse Anderson [facility] Work Phone: Comment on above: Patient Position: Sitting; Cuff Location : Left Arm; Cuff Size: Standard 12-16-2009 10:35-0400 Pulse (Heart Rate) 78 /min Ivelisse Anderson [facility] Work Phone: Comment on above: Pattern: Regular 12-16-2009 10:35-0400 Respiratory Rate 18 /min Ivelisse Anderson [facility] Work Phone: Comment on above: Pattern: Unlabored 12-16-2009 10:35-0400 Weight 83.92 kg Ivelisse Anderson [facility] Work Phone: 12-07-2009 08:44-0400 Body Temperature 99.1 [degF] Ivelisse Anderson [facility] Work Phone: Comment on above: Method: Oral 12-07-2009 08:44-0400 BP Diastolic 82 mm[Hg] Ivelisse Anderson [facility] Work Phone: Comment on above: Patient Position: Sitting; Cuff Location : Left Arm; Cuff Size: Large 12-07-2009 08:44-0400 BP Systolic 120 mm[Hg] Ivelisse Anderson [facility] Work Phone: Comment on above: Patient Position: Sitting; Cuff Location : Left Arm; Cuff Size: Large 12-07-2009 08:44-0400 Pulse (Heart Rate) 60 /min Ivelisse Anderson [facility] Work Phone: Comment on above: Pattern: Regular 12-07-2009 08:44-0400 Respiratory Rate 16 /min Ivelisse Anderson [facility] Work Phone: Comment on above: Pattern: Unlabored 07-21-2009 13:31-0500 Body weight 85.31 kg Radha Dexter RN [facility] Work Phone: 07-21-2009 13:31-0500 BP Diastolic 80 mm[Hg] Radha Dexter RN [facility] Work Phone: Comment on above: Patient Position: Sitting; Cuff Location : Left Arm; Cuff Size: Large 07-21-2009 13:31-0500 BP Systolic 142 mm[Hg] Radha Dexter RN [facility] Work Phone: Comment on above: Patient Position: Sitting; Cuff Location : Left Arm; Cuff Size: Large 07-21-2009 13:31-0500 Pulse (Heart Rate) 80 /min Radha Dexter RN [facility] Work Phone: Comment on above: Pattern: Regular 07-21-2009 13:31-0500 Respiratory Rate 20 /min Radha Dexter RN [facility] Work Phone: Comment on above: Pattern: Unlabored 07-21-2009 13:31-0500 Weight 85.31 kg Ivelisse Anderson [facility] Work Phone: 08-16-2008 08:00-0500 Body Temperature 98.1 [degF] Theresa Carlton [facility] Work Phone: Comment on above: Method: Undefined 08-16-2008 08:00-0500 Body weight 0 kg Theresa Carlton [facility] Work Phone: 08-16-2008 08:00-0500 BP Diastolic 84 mm[Hg] Theresa Bianka [facility] Work Phone: Comment on above: Patient Position: Sitting; Cuff Location : Left Arm; Cuff Size: Standard 08-16-2008 08:00-0500 BP Systolic 142 mm[Hg] Theresa Bianka [facility] Work Phone: Comment on above: Patient Position: Sitting; Cuff Location : Left Arm; Cuff Size: Standard 08-16-2008 08:00-0500 Head Circumference 0 cm Ivelisse Anderson [facility] Work Phone: 08-16-2008 08:00-0500 Head Occipital-frontal circumference 0 cm Theresa Carlton [facility]; [facility] Work Phone: 08-16-2008 08:00-0500 Height 0 cm Theresa Carlton [facility] Work Phone: 08-16-2008 08:00-0500 Pulse (Heart Rate) 68 /min Theresa Carlton [facility] Work Phone: Comment on above: Pattern: Regular 08-16-2008 08:00-0500 Respiratory Rate 16 /min Theresa Carlton [facility] Work Phone: Comment on above: Pattern: Undefined 08-16-2008 08:00-0500 Weight 0 kg Ivelisse Graceon [facility] Work Phone: 08-13-2008 10:20-0500 Body weight 85.31 kg Radha Dexter RN [facility] Work Phone: 08-13-2008 10:20-0500 BP Diastolic 80 mm[Hg] Radha Dexter RN [facility] Work Phone: Comment on above: Patient Position: Sitting; Cuff Location : Left Arm; Cuff Size: Large 08-13-2008 10:20-0500 BP Systolic 122 mm[Hg] Radha Dexter RN [facility] Work Phone: Comment on above: Patient Position: Sitting; Cuff Location : Left Arm; Cuff Size: Large 08-13-2008 10:20-0500 Head Circumference 0 cm Ivelisse Anderson [facility] Work Phone: 08-13-2008 10:20-0500 Head Occipital-frontal circumference 0 cm Radha Dexter RN [facility]; [facility] Work Phone: 08-13-2008 10:20-0500 Height 0 cm Radha Dexter RN [facility] Work Phone: 08-13-2008 10:20-0500 Pulse (Heart Rate) 60 /min Radha Dexter RN [facility] Work Phone: Comment on above: Pattern: Regular 08-13-2008 10:20-0500 Respiratory Rate 20 /min Radha Dexter RN [facility] Work Phone: Comment on above: Pattern: Unlabored 08-13-2008 10:20-0500 Weight 85.31 kg Ivelisse Anderson [facility] Work Phone: 06-14-2008 11:16-0500 Body Temperature 97.5 [degF] [facility] Work Phone: Comment on above: Method: Oral 06-14-2008 11:16-0500 Body weight 85.31 kg [facility] Work Phone: 06-14-2008 11:16-0500 BP Diastolic 72 mm[Hg] [facility] Work Phone: Comment on above: Patient Position: Sitting; Cuff Location : Left Arm; Cuff Size: Standard 06-14-2008 11:16-0500 BP Systolic 126 mm[Hg] [facility] Work Phone: Comment on above: Patient Position: Sitting; Cuff Location : Left Arm; Cuff Size: Standard 06-14-2008 11:16-0500 Head Circumference 0 cm Ivelisse Anderson [facility] Work Phone: 06-14-2008 11:16-0500 Head Occipital-frontal circumference 0 cm Odalys [facility]; [facility] Work Phone: 06-14-2008 11:16-0500 Height 0 cm [facility] Work Phone: 06-14-2008 11:16-0500 Pulse (Heart Rate) 74 /min [facility] Work Phone: Comment on above: Pattern: Regular 06-14-2008 11:16-0500 Respiratory Rate 18 /min [facility] Work Phone: Comment on above: Pattern: Unlabored 06-14-2008 11:16-0500 Weight 85.31 kg Ivelisse Anderson [facility] Work Phone: 06-07-2008 10:23-0500 Body Temperature 98.7 [degF] Odalys [facility] Work Phone: Comment on above: Method: Oral 06-07-2008 10:23-0500 Body weight 85.31 kg [facility] Work Phone: 06-07-2008 10:23-0500 BP Diastolic 72 mm[Hg] Odalys [facility] Work Phone: Comment on above: Patient Position: Sitting; Cuff Location : Left Arm; Cuff Size: Standard 06-07-2008 10:23-0500 BP Systolic 116 mm[Hg] Odalys [facility] Medicine Work Phone: Comment on above: Patient Position: Sitting; Cuff Location : Left Arm; Cuff Size: Standard 06-07-2008 10:23-0500 Head Circumference 0 cm Ivelisse Anderson [facility] Work Phone: 06-07-2008 10:23-0500 Head Occipital-frontal circumference 0 cm Odalys [facility]; [facility] Work Phone: 06-07-2008 10:23-0500 Height 0 cm Odalys [facility] Work Phone: 06-07-2008 10:23-0500 Pulse (Heart Rate) 66 /min Odalys [facility] Work Phone: Comment on above: Pattern: Regular 06-07-2008 10:23-0500 Respiratory Rate 18 /min Odalys [facility] Work Phone: Comment on above: Pattern: Unlabored 06-07-2008 10:23-0500 Weight 85.31 kg Ivelisse Anderson [facility] Work Phone: 05-28-2008 09:08-0500 Body Temperature 98.4 [degF] [facility] Work Phone: Comment on above: Method: Oral 05-28-2008 09:08-0500 Body weight 0 kg Odalys [facility] Work Phone: 05-28-2008 09:08-0500 BP Diastolic 78 mm[Hg] Odalys [facility] Work Phone: Comment on above: Patient Position: Sitting; Cuff Location : Left Arm; Cuff Size: Standard 05-28-2008 09:08-0500 BP Systolic 128 mm[Hg] Odalys [facility] Work Phone: Comment on above: Patient Position: Sitting; Cuff Location : Left Arm; Cuff Size: Standard 05-28-2008 09:08-0500 Head Circumference 0 cm Ivelisse Anderson [facility] Work Phone: 05-28-2008 09:08-0500 Head Occipital-frontal circumference 0 cm Odalys [facility]; [facility] Work Phone: 05-28-2008 09:08-0500 Height 0 cm Odalys [facility] Work Phone: 05-28-2008 09:08-0500 Pulse (Heart Rate) 68 /min Odalys [facility] Work Phone: Comment on above: Pattern: Regular 05-28-2008 09:08-0500 Respiratory Rate 18 /min Odalys [facility] Work Phone: Comment on above: Pattern: Unlabored 05-28-2008 09:08-0500 Weight 0 kg Ivelisse Anderson [facility] Work Phone: 09-23-2006 08:26-0400 Body Temperature 99.5 [degF] Theresa Carlton [facility] Work Phone: Comment on above: Method: Oral 09-23-2006 08:26-0400 Body weight 0 kg Theresa Coatsmarga [facility] Work Phone: 09-23-2006 08:26-0400 BP Diastolic 104 mm[Hg] Theresa Carlton [facility] Work Phone: Comment on above: Patient Position: Sitting; Cuff Location : Right Arm; Cuff Size: Standard 09-23-2006 08:26-0400 BP Systolic 156 mm[Hg] Theresa Coatsmarga [facility] Work Phone: Comment on above: Patient Position: Sitting; Cuff Location : Right Arm; Cuff Size: Standard 09-23-2006 08:26-0400 Head Circumference 0 cm Ivelisse Anderson [facility] Work Phone: 09-23-2006 08:26-0400 Head Occipital-frontal circumference 0 cm Theresa Carlton [facility]; [facility] Work Phone: 09-23-2006 08:26-0400 Height 0 cm Theresa Bianka [facility] Work Phone: 09-23-2006 08:26-0400 Pulse (Heart Rate) 64 /min Theresa Caseyyifan [facility] Work Phone: Comment on above: Pattern: Regular 09-23-2006 08:26-0400 Respiratory Rate 16 /min Theresa Bianka [facility] Work Phone: Comment on above: Pattern: Unlabored 09-23-2006 08:26-0400 Weight 0 kg Ivelisse Anderson [facility] Work Phone: Encounters Encounter Date Encounter Type Care Provider Facility Start: 07-06-2024 End: 07-06-2024 ambulatory Earle PHILLIPS [place] Start: 04-17-[address] [facility] Start: 03-13-2023 End: 03-13-2023 ambulatory [facility] Work Phone: Start: 03-13-2023 End: 03-13-2023 Patient encounter procedure [facility]-Outpatient Bone Densitometry Work Phone: Start: 03-11-2023 End: 03-20-2023 Office outpatient visit 25 minutes Ivelisse Mirian DO Work Phone: [facility] Start: 03-11-2023 Review Ivelisse Fearo n DO Work Phone: [facility] Start: 03-01-2023 End: 03-01-2023 Patient encounter procedure NAINA MENDOZA PA-C [facility] Start: 08-31-2021 ambulatory Antonella Mann RN [facility] Start: 08-25-2021 End: 08-25-2021 Annotation/Addendum Ivelisse Graceon DO Work Phone: [facility] Start: 08-18-2021 End: 08-18-2021 Office outpatient visit 25 minutes Ivelisse Mirian DO Work Phone: [facility] Start: 08-18-2021 Review Ivelisse Fearo n DO Work Phone: [facility] Start: 08-11-2021 End: 08-11-2021 Lab Order Ivelisse Graceon DO Work Phone: [facility] Start: 08-09-2021 End: 08-09-2021 SAME DAY STAY JONATHON ABBOTT MD [facility] Start: 11-27-2018 End: 11-27-2018 Office outpatient visit 15 minutes Ivelisse Anderson [facility] Start: 10-15-2017 End: 10-15-2017 Ambulatory Everette Nielson Facility:[facility] Start: 12-06-2016 End: 12-06-2016 Office outpatient visit 15 minutes Ivelisse Anderson [facility] Start: 04-18-2016 End: 04-18-2016 Patient encounter status Ivelisse Graceon DO Work Phone: [facility] Start: 04-18-2016 End: 04-18-2016 Periodic preventive med est patient 40-64yrs Ivelisse Anderson [facility] Start: 11-30-2014 End: 11-30-2014 Office outpatient visit 10 minutes Ivelisse Anderson [facility] Start: 10-12-2014 End: 10-12-2014 Refill Request Ivelisse Mirianmaria del carmen [facility] [employer] [facility] Start: 03-26-2012 End: 03-26-2012 Patient encounter procedure Ivelisse Mirian [facility] Start: 11-02-2011 End: 11-02-2011 Patient encounter procedure Ivelisse Mirian [facility] Start: 03-07-2011 End: 03-07-2011 Patient encounter procedure Ivelisse Mirian [facility] Start: 10-19-2010 End: 10-19-2010 Patient encounter procedure Ivelisse Anderson [facility] Start: 06-19-2010 End: 06-19-2010 Patient encounter procedure Ivelisse Mirian [facility] Start: 01-13-2010 End: 01-16-2010 Patient encounter procedure Ivelisse Anderson [facility] Start: 12-16-2009 End: 12-16-2009 Patient encounter procedure Ivelisse Anderson [facility] Start: 12-07-2009 End: 12-07-2009 Patient encounter procedure Ivelisse Mirian [facility] Start: 07-21-2009 End: 07-21-2009 Patient encounter procedure Ivelisse Anderson [facility] Start: 08-16-2008 End: 08-16-2008 Office outpatient visit 15 minutes Ivelisse Anderson [facility] Start: 08-13-2008 End: 08-13-2008 Patient encounter procedure Ivelisse Anderson [facility] Start: 06-14-2008 End: 06-14-2008 Office outpatient visit 15 minutes Ivelisse Anderson [facility] Start: 06-07-2008 End: 06-07-2008 Office outpatient visit 15 minutes Ivelisse Anderson [facility] Start: 05-28-2008 End: 05-28-2008 Office outpatient visit 15 minutes Ivelisse Anderson [facility] Start: 03-01-2008 End: 03-02-2008 Patient encounter procedure Ivelisse Mirian [facility] Start: 09-23-2006 End: 09-23-2006 Patient encounter procedure Ivelisse Anderson [facility] Patient encounter procedure Mitra Philippe CMA [facility] Work Phone: Patient encounter procedure Shahid Henning LPN [facility] Work Phone: Patient encounter procedure Nurys Gleason [facility]; [facility] Work Phone: Patient encounter status Mitra Philippe [facility]; [facility] Work Phone: Patient encounter status Shahid Henning [facility]; [facility] Work Phone: Patient encounter status Nurys Gleason [facility]; [facility] Work Phone: Procedures Date Procedure Procedure Detail Performing Clinician Start: 03-13-2023 Screening mammography Start: 03-13-2023 End: 03-13-2023 SCRN MAMM (CAD)W/ARTHUR BILAT Procedure Note: See Note; NOTES: [facility] Imaging Services [address] [place] [address] SCRN MAMM (CAD)W/ARTHUR BILAT MR#: [id number] Acct: [id number] Name: BINH TOBAR Rep #: [id number] : 1960 F 62 From: José Miguel thompson MD PCP: Dr. Ivelisse Anderson, DO Status: REG CLI Study: SCRN MAMM (CAD)W/ARTHUR BILAT Date of Exam: 02/14 Exam# [id number] Ordering Dr: Elizabeth Blanchard [employer]-C MAMMOGRAPHY - BILATERAL SCREENING REASON FOR EXAM: Female, 62 years old. Routine annual screening examination. PERTINENT HISTORY: Non-contributory. Prior left excisional breast biopsy. TECHNIQUE: Digital bilateral breast arthur (3D mammographic acquisition) in the CC and MLO projections. 2-D mediolateral oblique (MLO) and craniocaudad (CC) views of both breasts were obtained. CAD: Full Field Digital Mammography with Computer Added Detection was performed. COMPARISON: Comparison is made with prior outside examination dated July 12, 2009. FINDINGS: Breast Composition: The breasts are heterogeneously dense, which may obscure small masses. There are no dominant masses or suspicious calcifications. Stable benign-appearing bilateral axillary lymph nodes. No other significant abnormalities are identified. There has been no significant change since the prior study. BI/SCRN MAMM (CAD)W/ARTHUR BILAT IMPRESSION: Stable bilateral screening mammogram. Yearly follow-up mammogram recommended. (A) ASSESSMENT CATEGORY: BIRADS Category 2: Benign. A letter regarding these results will be sent to the patient by the facility within 30 days. Approximately 10% of breast cancers are not detected by mammography. A normal mammogram should not delay biopsy of a clinically suspicious abnormality. [id number] Electronically Signed: José Miguel Field MD at 14:40 EDT , CC: JEN Blanchard; Dr. Ivelisse Anderson DO Adoption Social Worker: Signed Elizabeth Blanchard CNP Work Phone: Start: 08-09-2021 Cardioversion NAINA MENDOZA PA-C Comment on above: 200 Joules with successful resumption of normal sinus rhythm. This was confirmed on EKG. Repeat EKG confirms return to sinus rhythm. Start: 08-09-2021 Doppler transesophageal echocardiography NAINA MENDOZA PA-C Comment on above: Summary: 1. Left ventricle: The cavity size is normal. Wall thickness is normal. Systolic function is normal. 2. Aortic valve: There is no evidence of a vegetation. 3. Mitral valve: There is mild regurgitation. 4. Left atrium: There is no evidence of a thrombus in the atrial cavity or appendage. There is spontaneous echo contrast (smoke). 5. Right atrium: There is no evidence of a thrombus in the atrial cavity or appendage. 6. Atrial septum: No defect or patent foramen ovale is identified. There is no evidence of thrombus. Start: 08-27-2017 End: 08-27-2017 Cardiology Visit Report Comments: See Note; NOTES: [facility] [address] [place] [address] OFFICE VISIT Date of Service: 06/20/17 MR#: [id number] Acct: [id number] Name: BINH TOBAR Rep #: [id number] : 1960 Provider: Manuel Shaw MD Age/Sex: 57/F [place] [facility] Status: Signed HPI a fib: Chief Complaint: f/u for atrial fibrillation Details: BINH TOBAR, is a 57 F who presents to the office today for emergency room follow-up for recurrent atrial fibrillation. She has a known history of atrial fibrillation and had undergone a CLARI guided DC cardioversion by Dr. Elmore at [facility] on 10/04/14. Previous to that, she had been treated with treated with flecainide therapy to preserve normal sinus rhythm. Apparently this was in 2010 and the patient underwent a CLARI guided DC cardioversion. Her most recent echocardiogram took place on 10/04/14 which showed an EF of 60%, RVSP of 25 mmHg. Patient is keenly aware when she goes in and out of atrial fibrillation, and reported to [facility] ER last evening on 06/19/17 after developing palpitations which started around 11 AM that morning. She ruled out for myocardial infarction 2 and was subsequently sent home on Xarelto and increasing her Lopressor to 50 mg p.o. twice daily. Patient had been reducing her beta-fred as she was running out of medications and had not seen a physician in some time. Patient underwent a stress echocardiogram on 10/06/14 at [facility] which demonstrated no significant ischemia. Her EKG at that time showed atrial fibrillation with rapid ventricular response, no acute changes noted. Patient is a lifelong non-smoker, nondiabetic, does not drink alcohol, and has a brother who has paroxysmal atrial fibrillation as well. Most of her atrial fibrillation began about 25 years ago when she was having her daughters, but interestingly not with her son's . She has had one episode in 2014 but none since yesterday. Patient reverted back to normal sinus rhythm around 1130 this morning according to her. In our office today her blood pressure is 132/80, pulse is 86 and regular. Physical exam demonstrates clear lungs bilaterally, regular rate and rhythm, normal S1/S2, no S3-S4. Lipids are pending. Repeat echo, stress echo are pending. EKG today demonstrates normal sinus rhythm, normal axis, normal intervals, QT corrected of 421 ms, no previous myocardial infarction noted. Intake Vital Signs06/20/17 Height 5 ft 8 in Intake Visit Reasons: a fib Allergies No Known Allergies Allergy (Verified 06/19/17 12:04) Medications Metoprolol Tartrate [Lopressor (beta fred)] 50 mg PO BID #60 tab 06/19/17 [Rx] apixaban 5 mg tablet 5 mg PO BID #30 tab 06/19/17 [Rx] PFSH Medical History Hyperlipidemia (Chronic) Paroxysmal atrial fibrillation (Acute) History of cardioversion (Inactive 11/2014) Hyperthyroidism (Inactive) Surgical History H/O left breast biopsy (Chronic) Family History Mother Heart disease atrial fib Brother Heart disease 2 brothers with atrial fib Social History Smoking Status: Never smoker alcohol intake: never substance use type: does not use ROS Cardio Palpitations: Yes (2.5 years ago had atrial fib) Cardiology Exam Const Appearance: cooperative, healthy appearing and no acute distress Nutritional Appearance: well nourished Orientation: alert, oriented x3 and oriented to person Head Head: normal to inspection, atraumatic and normocephalic Nose: external nose normal Face and Sinus: face symmetric Mouth: oral mucosae normal Eyes General: appearance normal, both eyes and all related structures Eyelids: eyelids normal Conjunctivae: conjunctivae normal Pupils: PERRL and normal by confrontation EOM: EOM intact bilaterally Neck Neck: normal visual inspection and full ROM Carotids: normal carotid upstroke Chest Chest inspection: normal inspection of the chest Auscultation: Bilateral: Clear to Auscultation Cardio Palpation: normal PMI Rate: regular rate Rhythm: regular rhythm Heart sounds: S1 normal and S2 normal GI GI: normal to inspection, no hepatosplenomegaly and bowel sounds present Neuro General: alert, oriented x3, awake, CN's II-XI intact bilaterally and moves all extremities Skin Skin: no rashes or lesions noted Extremities Pulses: Normal: Right Femoral Pulse, Left Femoral Pulse, Right Dorsalis Pedis Pulse, Left Dorsalis Pedis Pulse, Right Posterior Tibial Pulse, Left Posterior Tibial Pulse, Right Radial Pulse, Left Radial Pulse Lower Extremity Edema: None: Bilateral Psych Psychological: normal affect Assessment AND Plan Plan 1. Paroxysmal atrial fibrillation: The patient has paroxysmal atrial fibrillation which occurred around every 3 years. This 1 appears to have occurred as a result of her decreasing her beta-fred as she was running out of medications. She is not a diabetic, and her last echocardiogram showed normal LV function. She is very aware when she goes in and out of atrial fibrillation, so I would not recommend anticoagulation at this time. I would however recommend repeat echocardiogram to determine her LV function, and pulmonary pressures. If she has elevated pulmonary pressures this may require additional evaluation and anticoagulation as well. In addition she will undergo a treadmill echocardiogram to evaluate for exercise capacity, and ischemia. If this is grossly abnormal she may require a diagnostic coronary angiogram. Her TSH was normal. In addition I recommend that we obtain a fasting lipid profile to further evaluate her from a cardiac risk standpoint. We will obtain an EKG today and if she is back to normal sinus rhythm I do not believe she requires anticoagulation at this time. If she has further episodes of atrial fibrillation she will require long-term anticoagulation. In addition I recommend that we prescribe her propafenone 150 mg as needed for paroxysmal atrial fibrillation. She may take up to 2 dosages 12 hours apart if she does not revert back to normal sinus rhythm. I advised the patient is to avoid alcohol but she does not drink anyhow. 2. Return office in 1 month. This note was generated using a voice recognition system and there may be incorrect words, spelling or punctuation that were not noted when reviewing the office note prior to saving. Last Orders Orders: Medications On Hold: Plan Detail Follow Up 1 Month 08/27/17 1112 <Electronically signed by Manuel Shaw MD> Date Manuel Shaw MD Cosigner Signature: Date (if applicable) CC: Ivelisse Anderson Start: 06-24-2017 End: 06-24-2017 12 lead ECG Comments: See Note; NOTES: [facility] Cardiovascular Services [address] [place] [address] 12 Lead EKG 06/19/17 1230 MR#: [id number] Acct: [id number] Name: BINH TOBAR Rep #: [id number] : 1960 57 From: Manuel Shaw MD Attending Dr: Status: DEP ER Ordering Dr: Precious Pedersen DO Date: 06/19/17 Location: ED Sex: F C Admitted: Test Reason : PALP Blood Pressure : / mmHG Vent. Rate : 113 BPM Atrial Rate : 136 BPM P-R Int : 000 ms QRS Dur : 078 ms QT Int : 342 ms P-R-T Axes : 000 -04 026 degrees QTc Int : 469 ms Atrial fibrillation Abnormal ECG Confirmed by MANUEL SHAW ([id number]), news editor CARMEN PATTERSON ([id number]) on 06/24/2017 3:33:09 PM Referred By: Confirmed By:MANUEL SHAW 06/24/17 1533 Date Manuel Shaw MD CC: Ivelisse Anderson DO Signed Ivelisse Anderson Start: 06-20-2017 End: 07-31-2017 12 Lead EKG performed by BMS Comments: See Note; NOTES: [facility] [address] [place] [address] 12 Lead EKG performed by BMS 06/20/17 1558 MR#: [id number] Acct: [id number] Name: BINH TOBAR Rep #: [id number] : 1960 57 From: Manuel Shaw MD Attending Dr: Manuel Shaw MD Status: DEP AMB Ordering Dr: Manuel Shaw MD Date: 06/20/17 [place] [facility] Sex: F C Admitted: BMS/12 Lead EKG performed by BMS Sinus Rhythm -RSR(V1) -nondiagnostic. PROBABLY NORMAL 06/26/17 0938 <Electronically signed by Manuel Shaw MD> Date Manuel Shaw MD CC: Ivelisse Anderson DO Date Dictated: 06/20/171557 Date Transcribed: 06/20/171557 Adoption Social Worker: Signed Ivelisse Anderson Start: 06-19-2017 End: 06-19-2017 Discharge Instruction Comments: See Note; NOTES: [facility] Medical Records Department [address] [place] [address] Discharge Instruction 06/19/17 1439 MR#: [id number] Acct: [id number] Name: BINH TOBAR Rep #: [id number] : 1960 57 From: Precious Pedersen DO PCP: Ivelisse Anderson DO Status: REG ER ED Disposition - Plan for ED Patient: Chief Complaint: Palpitations Prescriptions: Apixaban [Eliquis] 5 mg PO BID #30 tab Metoprolol Tartrate [Lopressor (beta fred)] 50 mg PO BID #60 tab Referrals: Manuel Shaw MD [STAFF PHYSICIAN] - Ivelisse Anderson DO [Primary Care Provider] - 3-5 Days What to do if you have Problems For any increased pain, shortness of breath, bleeding, nausea or vomiting, chest pain, or any unexpected problems, contact your Primary Care Provider. Call [facility] ([phone]) or report to the closest Emergency Room. Call 911 if necessary. 06/19/17 1442 <Electronically signed by Precious Pedersen DO> Date Precious Pedersen DO Cosigner Signature (If Indicated): Date CC: Ivelisse Anderson DO Ivelisse Anderson Start: 06-19-2017 End: 06-19-2017 Emergency Department Summary Comments: See Note; NOTES: [facility] Medical Records Department [address] [place] [address] Emergency Department Summary 06/19/17 1436 MR#: [id number] Acct: [id number] Name: BINH TOBAR Rep #: [id number] : 1960 57 From: Precious Pedersen DO PCP: Ivelisse Anderson DO Status: REG ER - ER Visit Summary Date of Service: 06/19/17 Chief Complaint: [Palpitations] History of Present Illness: The patient is a 57 F [presents the emergency department chief complaint of palpitations that started this morning around 11 AM. Patient has a history of paroxysmal A. fib and her last episode was about 3 years ago. Patient is not on any blood thinners. Patient denies any chest pain or shortness of breath. Patient states that she has been cardioverted in the past. Patient has also converted on her own with just medications in the past. Denies any recent illness.] Physical Examination: [HEENT-PERRLA, EOMI. Cranial nerves II through XII grossly intact. TMs clear. Mucous membranes moist. No adenopathy. Cardiovascular-heart is irregularly irregular. Patient is mildly tachycardic. No murmurs auscultated. Lungs-clear to auscultation, chest wall stable without crepitus or subcu emphysema Abdomen-normoactive bowel sounds, soft, nontender, no rebound or rigidity, no peritoneal signs. Extremities-intact 4, normal range of motion, normal pulses, atraumatic] Test Results: [EKG obtained on arrival showed atrial fibrillation with a rapid ventricular response with a ventricular rate of 113 bpm. CBC with differential was normal. Chemistries were normal. Troponin was less than 0.02. TSH was 1.17. Chest x-ray showed nothing acute.] Emergency Department Course and Treatment: [She received Cardizem 20 mg IV bolus here and her heart rate improved into the 70s however she continues to be in atrial fibrillation.] Treatment Plan: [Patient case was discussed with Dr. Manuel Shaw who is on-call for cardiology. Dr. Shaw would like to start patient on anticoagulation and have her continue with her metoprolol at 50 mg twice a day as patient had diminished her metoprolol to 25 mg once a day because she thought she was running out and did not have a follow-up appointment with her doctor. Disposition: [Discharged to home in stable condition. Patient advised to follow-up with cardiology within next 3-5 days.] Impression: [Atrial fibrillation-paroxysmal] This note was generated with Jaunt dictation software. It may contain incorrect words, spelling, and punctuation that were not noted in review of the chart prior to signing ED Disposition - Plan for ED Patient: Chief Complaint: Palpitations Referrals: Ivelisse Anderson, [Primary Care Provider] - What to do if you have Problems For any increased pain, shortness of breath, bleeding, nausea or vomiting, chest pain, or any unexpected problems, contact your Primary Care Provider. Call [facility] ([phone]) or report to the closest Emergency Room. Call 911 if necessary. 06/19/17 1439 <Electronically signed by Precious Pedersen DO> Date Precious Pedersen DO Cosigner Signature (If Indicated): Date CC: Ivelisse Rodgers Start: 10-06-2014 Stress echocardiography JONATHON ABBOTT MD Comment on above: 1. Good exercise tolerance achieving a w orkload of 10.1 METs. 2. No chest discomfort to suggest angina or inordinate dyspnea elicited with stress. 3. Electrocardiogram demonstrating normal sinus rhythm with a borderline right IVCD at rest, rare premature atrial and premature ventricular complexes with stress, but no change in intraventricular conduction or ST changes to suggest ischemia elicited with stress. 4. No regional wall motion abnormalities to suggest ischemia elicited with stress. Start: 10-04-2014 Cardioversion JONATHON ABBOTT MD Start: 10-04-2014 Echocardiography JONATHON ABBOTT MD Comment on above: 1. Normal left ventricular systolic func tion, ejection fraction 60%. 2. Mild left atrial enlargement. 3. Trivial mitral insufficiency. 4. Mild tricuspid insufficiency. 5. Trivial aortic insufficiency. 6. Trivial pulmonic insufficiency. 7. Right ventricular systolic pressure estimated to be 25 mm [Hg]. Start: 10-04-2014 Transesophageal echocardiography JONATHON ABBOTT MD Comment on above: 1. Normal left ventricular systolic func tion, ejection fraction 60%. 2. Mild left atrial enlargement with minimal spontaneous contrast, no thrombus. 3. Minimal right atrial spontaneous contrast, no thrombus. 4. Multiple mitral valve strands with mild mitral insufficiency. 5. Mild tricuspid insufficiency. 6. Trivial aortic insufficiency. 7. Trivial pulmonic insufficiency. 8. Minimal isolated atherosclerotic plaque of the aortic arch and descending thoracic aorta. Start: 10-28-2012 Duplex ultrasound (qualifier value) JONATHON ABBOTT MD Start: 07-15-2011 Specimen from breast obtained by biopsy (specimen) JONATHON ABBOTT MD Plan of Treatment Date Care Activity Detail Author Start: 03-20-2023 Provider Instructions for Treatment [facility] Work Phone: Start: 03-11-2023 Assay of thyroid stimulating hormone tsh TSH (THYROID STIMULATING HORMONE) (07796) : in 6-8 weeks [facility]; [facility] Work Phone: Start: 03-11-2023 Hemoglobin glycosylated a1c HGB A1C (97313) [facility]; [facility] Work Phone: Start: 03-11-2023 Patient Education Hypertension [facility]; [facility] Work Phone: Start: 03-11-2023 Procedure Education Eprescribed prescriptions (G8553) [facility]; [facility] Work Phone: Start: 03-11-2023 Cortisol total CORTISOL, A.M. (41792) [facility]; [facility] Work Phone: Start: 03-11-2023 Urinalysis qual/semiquant except immunoassays URINALYSIS (57652) [facility]; [facility] Work Phone: Start: 03-11-2023 Hepatic function panel HEPATIC FUNCTION PANEL (89748) [facility]; [facility] Work Phone: Start: 03-11-2023 25 hydroxy includes fractions if performed CALCIFEDIOL (00450) [facility]; [facility] Work Phone: Start: 03-11-2023 Creatinine other source MICROALB;CREAT RATION, RAND UR (94104) [facility]; [facility] Work Phone: Start: 03-11-2023 Lipid panel LIPID PANEL (49691) [facility]; [facility] Work Phone: Start: 08-18-2021 Procedure Education Eprescribed prescriptions (G8553) [facility]; [facility] Work Phone: Start: 08-18-2021 Provider Instructions for Treatment Follow up in 3-4 with [facility] help desk representative to [facility]; [facility] Work Phone: Start: 08-18-2021 25 hydroxy includes fractions if performed CALCIFEDIOL (90139) [facility]; [facility] Work Phone: Comment on above: Sep 04 Start: 08-18-2021 Hemoglobin glycosylated a1c HGB A1C (39069) [facility]; [facility] Work Phone: Comment on above: Sep 04 2021 Start: 08-18-2021 Comprehensive metabolic panel Metabolic Panel, Comprehensive (16630) [facility]; [facility] Work Phone: Comment on above: Sep 04, 2021 Start: 08-11-2021 CBC, PLATELETS & MANUAL DIFF (14905) CBC, PLATELETS & MANUAL DIFF (20266) [facility]; [facility] Work Phone: Start: 08-11-2021 Comprehensive metabolic panel METABOLIC PANEL, COMPREHENSIVE (88532) [facility]; [facility] Work Phone: Start: 08-11-2021 Lipid panel LIPID PANEL (57795) [facility]; [facility] Work Phone: Start: 08-11-2021 Assay of triiodothyronine t3 free FREE TRIIDOTHYRONINE (T3) (92928) [facility]; [facility] Work Phone: Start: 08-11-2021 Assay of free thyroxine T4, FREE (THYROXINE) (40462) [facility]; [facility] Work Phone: Start: 08-11-2021 Assay of thyroid stimulating hormone tsh TSH (THYROID STIMULATING HORMONE) (41899) [facility]; [facility] Work Phone: Start: 03-15-2021 Influenza vaccination INFLUENZA VACCINE (#1) [facility] Start: 11-27-2018 Procedure Education Eprescribed prescriptions (G8553) [facility] Work Phone: Start: 12-06-2016 Patient Education Allergic Rhinitis *: allergic rhinitis [facility] Work Phone: Start: 12-06-2016 Procedure Education Eprescribed prescriptions (G8553) [facility] Work Phone: Start: 12-06-2016 Provider Instructions for Treatment Follow up if no improvement or if symptoms worsen [facility] Work Phone: Start: 04-18-2016 Provider Instructions for Treatment [facility] Work Phone: Start: 04-18-2016 Lipid panel LIPID PANEL (64923) [facility] Work Phone: Start: 04-18-2016 Cytp cerv/vag auto thin layer prep mnl screen Thin prep Pap (06267) (no STD testing) [facility] Work Phone: Start: 11-30-2014 Provider Instructions for Treatment Follow up if no improvement or if symptoms worsen [facility] Work Phone: Start: 11-30-2014 Culture bacterial quanttative colony count urine URINE JOANN CULTURE-JANE COL COUNT (49994) [facility] Work Phone: Start: 03-26-2012 Patient Education Mammogram *: gynecological health [facility] Work Phone: Start: 03-26-2012 Provider Instructions for Treatment [facility] Work Phone: Start: 03-26-2012 Cytp cerv/vag auto thin layer prep mnl screen Thin prep Pap (56723) [facility] Work Phone: Start: 11-02-2011 Assay of estrone ESTRONE (92452) [facility] Work Phone: Start: 11-02-2011 Assay of testosterone total TESTOSTERONE TOTAL (00660) [facility]; [facility] Work Phone: Start: 11-02-2011 Testosterone mass conc TESTOSTERONE TOTAL (86821) [facility] Work Phone: Start: 11-02-2011 Assay of progesterone PROGESTERONE (92903) [facility] Work Phone: Start: 11-02-2011 Protein mass conc PROGESTERONE (82919) [facility] Work Phone: Start: 11-02-2011 Cortisol total CORTISOL, A.M. (30597) [facility] Work Phone: Start: 11-02-2011 Dehydroepiandrosterone-oliveira lfate DHEA-S (DEHYDROEPIANDROSTERONE SULFATE) (39901) [facility] Work Phone: Start: 11-02-2011 Glucose mass conc GLUCOSE (65258) [facility] Work Phone: Comment on above: fasting Start: 11-02-2011 Glucose quantitative blood xcpt reagent strip GLUCOSE (31624) [facility]; [facility] Work Phone: Comment on above: fasting Start: 11-02-2011 Assay of insulin total INSULIN, TOTAL (92678) [facility] Work Phone: Comment on above: fasting Start: 11-02-2011 Microsomal antibodies each Anti-TPO Antibody (39355) [facility] Work Phone: Start: 11-02-2011 Assay of estradiol ESTRADIOL (05587) [facility] Work Phone: Start: 11-02-2011 Assay of thyroid stimulating hormone tsh TSH (64413) [facility]; [facility] Work Phone: Start: 11-02-2011 Thyrotropin Qn TSH (65932) [facility] Work Phone: Start: 11-02-2011 Assay of free thyroxine T4, FREE (THYROXINE) (76136) [facility]; [facility] Work Phone: Start: 11-02-2011 T4 free mass conc T4, FREE (THYROXINE) (54243) [facility] Work Phone: Start: 11-02-2011 Assay of triiodothyronine t3 free T3, FREE (TRIDOTHYRONINE) (71333) [facility]; [facility] Work Phone: Start: 11-02-2011 T3 free mass conc T3, FREE (TRIDOTHYRONINE) (19839) [facility] Work Phone: Start: 11-02-2011 Gonadotropin follicle stimulating hormone FSH AND LH (08542) [facility] Work Phone: Start: 2011 Zoster vaccine hzv live for subcutaneous use ZOSTER (SHINGLES) VACCINE (1 of 2) [facility] Start: 10-19-2010 Provider Instructions for Treatment FOLLOW UP IN 1 MONTH [facility] Work Phone: Start: 12-16-2009 Provider Instructions for Treatment [facility] Work Phone: Start: 12-07-2009 Provider Instructions for Treatment FOLLOW UP IN 1-2 WEEKs [facility] Work Phone: Start: 07-21-2009 Cul bact xcpt urine blood/stool aerobic isol JOANN CULTURE-OTHER (87730) [facility] Work Phone: Comment on above: nipple discharge Start: 08-13-2008 Provider Instructions for Treatment [facility] Work Phone: Start: 06-14-2008 Provider Instructions for Treatment Reviewed Lab [facility] Work Phone: Start: 06-07-2008 Cul bact xcpt urine blood/stool aerobic isol JOANN CULTURE-OTHER (68349) [facility] Work Phone: Start: 09-23-2006 Provider Instructions for Treatment [facility] Work Phone: Start: 2006 Colonoscopy COLORECTAL CANCER SCREENING DISCUSSION [facility] Start: 2001 Fasting lipid profile LIPID SCREENING [facility] Start: 2001 Screening mammography MAMMOGRAM SCREENING DISCUSSION [facility] Start: 1982 Screening for malignant neoplasm of cervix CERVICAL CANCER SCREENING DISCUSSION [facility] Start: 1980 Third diphtheria, tetanus and acellular pertussis (DTaP) vaccination TDAP (ADULT) [facility] Start: 1979 Tetanus vaccination TETANUS [facility] Start: 1976 HIV screening HIV SCREENING DISCUSSION [facility] Start: 1966 COVID-19 VACCINE (1) COVID-19 VACCINE (1) [facility] Start: 1961 Hepatitis C antibody, confirmatory test HEPATITIS C VIRUS SCREENING [facility] Work Phone: [facility]: [facility] Work Phone: [facility] Work Phone: [facility] Work Phone: [facility] Work Phone: [facility] Work Phone: [facility] Work Phone: [facility] Work Phone: [facility] Work Phone: Immunizations Immunization Date Immunization Notes Care Provider Fa cili 04-20-2020 influenza virus vaccine, unspecified formulation JONATHON ABBOTT MD [facility] 03-01-2008 tetanus and diphther ia toxoids, adsorbed, preservative free, for adult use (2 Lf of tetanus toxoid and 2 Lf of diphtheria toxoid) Ivelisse Anderson [facility] Work Phone: Comment on above: tetanus given in lt deltoid, lot# [id number], expires 05-30-09/hlh Payers Date Payer Category Payer Self-pay [id number] Unknown [id number] 2017 Unknown 1961 Unknown [id number] Unknown [facility] [id number] Unknown [id number] Social History Date Type Detail Facility No Caffeine Use Never smoker [facility] Work Phone: Comment on above: updated 03-07-11 Tobacco use: Never smoker. [facility] Work Phone: Start: 11-04-2019 Never smoked t obacco (finding) [facility] Sex Assigned At [facility] Tobacco use: Tobacco use: [facility] Work Phone: Start: 01-10-2020 Tobacco smoking status NHIS Tobacco smoking consumption unknown [facility] Start: 1960 Sex Assigned At Not on file [facility] Start: 1960 Sex Assigned At Female [facility] Clinical Notes 08-09-2021 to 09-01-2021 Telephone Encounter - Luda Linton RN - 09/01/2021 1:26 PM ESTTelephone Encounter - Everette Driscoll - 09/01/2021 11:05 AM ESTTelephone Encounter - Luda Linton RN - 09/01/2021 10:32 AM EST Note Date & Type Note Facility 09-01-2021 Miscellaneous Notes Pt with new onset afib, no EKGS available. Ok for OV with Dr Mendes. To HRT scheduling to arrange. Referring office contacted and no EKG done. 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 Humphrey. Clinic note only in records- routed to [facility] for additional records, including cardiac imaging and any documentation of afib (ekgs, monitors) Will review with Dr. Humphrey upon receipt. documented in this encounter [facility] 08-09-2021 Hospital Discharg e instructions Patient Education 08/09/2021 12:22:13 3- Cardioversion (04/2018) (CUSTOM) CARDIOVERSION Discharge instructions Please follow CLARI instructions given to you ACTIVITY/SAFETY Please refrain from the following activities for 24 hours: Do not drive a car or operate heavy equipment. Do not consume alcohol for 24 hours. Do not return to work for 24 hours. Postpone signing any important papers or making important decisions. COMFORT Call your primary doctor if you have any redness, tenderness, warmth, discharge or swelling at your IV site. Your chest or back may get red and/or develop a burning sensation. Apply fragrance-free Aloe Vera lotion. Take Tylenol as needed for pain. DIET When you return home, resume your regular diet unless otherwise directed. Some of the sedatives, anesthetic medications you received today may make you nauseated. If vomiting persists, call your doctor. Restart your usual medications unless otherwise instructed by your doctor. If you have any questions, please call your doctor at the number listed on your follow up instructions. Document Released: 07/01/2006 Document Revised: 06/17/2013 Document Reviewed: 07/02/2014 ExitCare Patient Information 2015 [employer]. This information is not intended to replace advice given to you by your health care provider. Make sure you discuss any questions you have with your health care provider. Follow Up Care 08/08/2021 10:33:44 With:SLOAN MARSHALL MD Address: [address] [facility] [place] [address]- [phone] When:10/03/2021 15:45:00 [facility] Evaluation + Plan note Future Appointments Appointment Date:10/03/2021 03:45:00 PM Scheduled Provider: Location:[facility] Appointment Type:CV OV Future Scheduled TestsN-Terminal proBNP 08/03/21A1C Hemoglobin 08/03/21Complete Blood Count 08/03/21Lipid Profile 08/03/21Complete Metabolic Panel 08/03/21 [facility] Evaluation note No assessment inform ation available [facility] Work Phone: Hospital course Narrative No data available for this section [facility] Hospital Discharge instructions No data available for this section [facility] Instructions Name How to access health information online - Detail Indication:Non-smoker Start:28-Nov-19 Instruction Type:Patient Education How to access health information online Indication:Non-smoker Start:28-Nov-19 Instruction Type:Patient Education Patient Instructions Indication:Non-smoker Start:28-Nov-19 Instruction Type:Provider Instructions for Treatment How to access health information online Indication:BMI 29.0-29.9,adult Start:07-Dec-19 Instruction Type:Patient Education How to access health information online - Detail Indication:BMI 29.0-29.9,adult Start:07-Dec-19 Instruction Type:Patient Education Patient Instructions Indication:BMI 29.0-29.9,adult Start:07-Dec-19 Instruction Type:Provider Instructions for Treatment Patient Instructions Indication:Screening for HPV (human papillomavirus) (Renamed from Encounter for screening for human papillomavirus (HPV)) Start: Instruction Type:Provider Instructions for Treatment Patient Instructions Indication:Well woman exam Start:26-Mar-20 Instruction Type:Provider Instructions for Treatment [facility]; [facility] Work Phone: instructions* Name Dates Details Patient Instructions Indication:BMI 30.0-30.9,adult Start:18-Aug-2021 Instruction Type:Provider Instructions for Treatment How to Access Health Informa tion Online using Patient Portal and 3rd [employer] Apps Indication:BMI 30.0-30.9,adult Start:18-Aug-2021 Instruction Type:Patient Education How to access health informa tion online - Detail Indication:Non-smoker Start:27-Nov-2018 Instruction Type:Patient Education How to access health informa tion online Indication:Non-smoker Start:27-Nov-2018 Instruction Type:Patient Education Patient Instructions Indication:Non-smoker Start:27-Nov-2018 Instruction Type:Provider Instructions for Treatment How to access health informa tion online Indication:BMI 29.0-29.9,adult Start:06-Dec-2016 Instruction Type:Patient Education How to access health informa tion online - Detail Indication:BMI 29.0-29.9,adult Start:06-Dec-2016 Instruction Type:Patient Education Patient Instructions Indication:BMI 29.0-29.9,adult Start:06-Dec-2016 Instruction Type:Provider Instructions for Treatment Patient Instructions Indication:Screening for HPV (human papillomavirus) (Renamed from Encounter for screening for human papillomavirus (HPV)) Start:18-Apr-2016 Instruction Type:Provider Instructions for Treatment Patient Instructions Indication:Well woman exam Start:26-Mar-2012 Instruction Type:Provider Instructions for Treatment [facility]; [facility] Work Phone: Instructions* Name Dates Details Patient Instructions Indication:BMI 30.0-30.9,adult Start:18-Aug-2021 Instruction Type:Provider Instructions for Treatment How to Access Health Informa tion Online using Patient Portal and 3rd [employer] Apps Indication:BMI 30.0-30.9,adult Start:18-Aug-2021 Instruction Type:Patient Education How to access health informa tion online - Detail Indication:Non-smoker Start:27-Nov-2018 Instruction Type:Patient Education How to access health informa tion online Indication:Non-smoker Start:27-Nov-2018 Instruction Type:Patient Education Patient Instructions Indication:Non-smoker Start:27-Nov-2018 Instruction Type:Provider Instructions for Treatment How to access health informa tion online Indication:BMI 29.0-29.9,adult Start:06-Dec-2016 Instruction Type:Patient Education How to access health informa tion online - Detail Indication:BMI 29.0-29.9,adult Start:06-Dec-2016 Instruction Type:Patient Education Patient Instructions Indication:BMI 29.0-29.9,adult Start:06-Dec-2016 Instruction Type:Provider Instructions for Treatment Patient Instructions Indication:Screening for HPV (human papillomavirus) (Renamed from Encounter for screening for human papillomavirus (HPV)) Start:18-Apr-2016 Instruction Type:Provider Instructions for Treatment Patient Instructions Indication:Well woman exam Start:26-Mar-2012 Instruction Type:Provider Instructions for Treatment [facility]; [facility] Work Phone: Instructions* Name Dates Details Patient Instructions Indication:BMI 30.0-30.9,adult Start:18-Aug-2021 Instruction Type:Provider Instructions for Treatment How to Access Health Informa tion Online using Patient Portal and [employer] Apps Indication:BMI 30.0-30.9,adult Start:18-Aug-2021 Instruction Type:Patient Education How to access health informa tion online - Detail Indication:Non-smoker Start:27-Nov-2018 Instruction Type:Patient Education How to access health informa tion online Indication:Non-smoker Start:27-Nov-2018 Instruction Type:Patient Education Patient Instructions Indication:Non-smoker Start:27-Nov-2018 Instruction Type:Provider Instructions for Treatment How to access health informa tion online Indication:BMI 29.0-29.9,adult Start:06-Dec-2016 Instruction Type:Patient Education How to access health informa tion online - Detail Indication:BMI 29.0-29.9,adult Start:06-Dec-2016 Instruction Type:Patient Education Patient Instructions Indication:BMI 29.0-29.9,adult Start:06-Dec-2016 Instruction Type:Provider Instructions for Treatment Patient Instructions Indication:Screening for HPV (human papillomavirus) (Renamed from Encounter for screening for human papillomavirus (HPV)) Start:18-Apr-2016 Instruction Type:Provider Instructions for Treatment Patient Instructions Indication:Well woman exam Start:26-Mar-2012 Instruction Type:Provider Instructions for Treatment [facility]; [facility] Work Phone: Instructions* Name Dates Details Patient Instructions Indication:BMI 30.0-30.9,adult Start:18-Aug-2021 Instruction Type:Provider Instructions for Treatment How to Access Health Informa tion Online using Patient Portal and 3rd [employer] Apps Indication:BMI 30.0-30.9,adult Start:18-Aug-2021 Instruction Type:Patient Education How to access health informa tion online - Detail Indication:Non-smoker Start:27-Nov-2018 Instruction Type:Patient Education How to access health informa tion online Indication:Non-smoker Start:27-Nov-2018 Instruction Type:Patient Education Patient Instructions Indication:Non-smoker Start:27-Nov-2018 Instruction Type:Provider Instructions for Treatment How to access health informa tion online Indication:BMI 29.0-29.9,adult Start:06-Dec-2016 Instruction Type:Patient Education How to access health informa tion online - Detail Indication:BMI 29.0-29.9,adult Start:06-Dec-2016 Instruction Type:Patient Education Patient Instructions Indication:BMI 29.0-29.9,adult Start:06-Dec-2016 Instruction Type:Provider Instructions for Treatment Patient Instructions Indication:Screening for HPV (human papillomavirus) (Renamed from Encounter for screening for human papillomavirus (HPV)) Start:18-Apr-2016 Instruction Type:Provider Instructions for Treatment Patient Instructions Indication:Well woman exam Start:26-Mar-2012 Instruction Type:Provider Instructions for Treatment [facility] Work Phone: Insxflpfions* Name Dates Details Patient Instructions Indication:Impaired fasting glucose Start:11-Mar-2023 Instruction Type:Provider Instructions for Treatment How to Access Health Informa tion Online using Patient Portal and Support [employer] Indication:Impaired fasting glucose Start:11-Mar-2023 Instruction Type:Patient Education Patient Instructions Indication:BMI 30.0-30.9,adult Start:18-Aug-2021 Instruction Type:Provider Instructions for Treatment How to Access Health Informa tion Online using Patient Portal and 3rd [employer] Indication:BMI 30.0-30.9,adult Start:18-Aug-2021 Instruction Type:Patient Education How to access health informa tion online - Detail Indication:Non-smoker Start:27-Nov-2018 Instruction Type:Patient Education How to access health informa tion online Indication:Non-smoker Start:27-Nov-2018 Instruction Type:Patient Education Patient Instructions Indication:Non-smoker Start:27-Nov-2018 Instruction Type:Provider Instructions for Treatment How to access health informa tion online Indication:BMI 29.0-29.9,adult Start:06-Dec-2016 Instruction Type:Patient Education How to access health informa tion online - Detail Indication:BMI 29.0-29.9,adult Start:06-Dec-2016 Instruction Type:Patient Education Patient Instructions Indication:BMI 29.0-29.9,adult Start:06-Dec-2016 Instruction Type:Provider Instructions for Treatment Patient Instructions Indication:Screening for HPV (human papillomavirus) (Renamed from Encounter for screening for human papillomavirus (HPV)) Start:18-Apr-2016 Instruction Type:Provider Instructions for Treatment Patient Instructions Indication:Well woman exam Start:26-Mar-2012 Instruction Type:Provider Instructions for Treatment [facility] Work Phone: Instructions* Name Dates Details Patient Instructions Indication:Impaired fasting glucose Start:11-Mar-2023 Instruction Type:Provider Instructions for Treatment How to Access Health Informa tion Online using Patient Portal and 3rd [employer] Indication:Impaired fasting glucose Start:11-Mar-2023 Instruction Type:Patient Education Patient Instructions Indication:BMI 30.0-30.9,adult Start:18-Aug-2021 Instruction Type:Provider Instructions for Treatment How to Access Health Informa tion Online using Patient Portal and 3rd [employer] Indication:BMI 30.0-30.9,adult Start:18-Aug-2021 Instruction Type:Patient Education How to access health informa tion online - Detail Indication:Non-smoker Start:27-Nov-2018 Instruction Type:Patient Education How to access health informa tion online Indication:Non-smoker Start:27-Nov-2018 Instruction Type:Patient Education Patient Instructions Indication:Non-smoker Start:27-Nov-2018 Instruction Type:Provider Instructions for Treatment How to access health informa tion online Indication:BMI 29.0-29.9,adult Start:06-Dec-2016 Instruction Type:Patient Education How to access health informa tion online - Detail Indication:BMI 29.0-29.9,adult Start:06-Dec-2016 Instruction Type:Patient Education Patient Instructions Indication:BMI 29.0-29.9,adult Start:06-Dec-2016 Instruction Type:Provider Instructions for Treatment Patient Instructions Indication:Screening for HPV (human papillomavirus) (Renamed from Encounter for screening for human papillomavirus (HPV)) Start:18-Apr-2016 Instruction Type:Provider Instructions for Treatment Patient Instructions Indication:Well woman exam Start:26-Mar-2012 Instruction Type:Provider Instructions for Treatment [facility] Work Phone: Instructions* Name Dates Details Patient Instructions Indication:Impaired fasting glucose Start:11-Mar-2023 Instruction Type:Provider Instructions for Treatment How to Access Health Informa tion Online using Patient Portal and 3rd [employer] Indication:Impaired fasting glucose Start:11-Mar-2023 Instruction Type:Patient Education Patient Instructions Indication:BMI 30.0-30.9,adult Start:18-Aug-2021 Instruction Type:Provider Instructions for Treatment How to Access Health Informa tion Online using Patient Portal and [employer]rd [employer] Indication:BMI 30.0-30.9,adult Start:18-Aug-2021 Instruction Type:Patient Education How to access health informa tion online - Detail Indication:Non-smoker Start:27-Nov-2018 Instruction Type:Patient Education How to access health informa tion online Indication:Non-smoker Start:27-Nov-2018 Instruction Type:Patient Education Patient Instructions Indication:Non-smoker Start:27-Nov-2018 Instruction Type:Provider Instructions for Treatment How to access health informa tion online Indication:BMI 29.0-29.9,adult Start:06-Dec-2016 Instruction Type:Patient Education How to access health informa tion online - Detail Indication:BMI 29.0-29.9,adult Start:06-Dec-2016 Instruction Type:Patient Education Patient Instructions Indication:BMI 29.0-29.9,adult Start:06-Dec-2016 Instruction Type:Provider Instructions for Treatment Patient Instructions Indication:Screening for HPV (human papillomavirus) (Renamed from Encounter for screening for human papillomavirus (HPV)) Start:18-Apr-2016 Instruction Type:Provider Instructions for Treatment Patient Instructions Indication:Well woman exam Start:26-Mar-2012 Instruction Type:Provider Instructions for Treatment [facility] Work Phone: progress note No data available for this section [facility] Summary Purpose Family History No Family History Records Found Relationship Condition Age at Onset Recorded Date/T justyn mother Cardiac disease Unknown brother Cardiac disease Unknown Advance Directives No Advanced Directives Records Found Name Dates Details Immunization Registry [place] - Effective on 11/27/2018. Expiration date unspecified Effective:27-Nov-2018 Name Dates Details Immunization Registry [place] - Effective on 11/27/2018. Expiration date unspecified Effective:27-Nov-2018 Name Dates Details Immunization Registry [place] - Effective on 11/27/2018. Expiration date unspecified Effective:27-Nov-2018 Name Dates Details Immunization Registry [place] - Effective on 11/27/2018. Expiration date unspecified Effective:27-Nov-2018 Name Dates Details Immunization Registry [place] - Effective on 11/27/2018. Expiration date unspecified Effective:27-Nov-2018 Name Dates Details Immunization Registry [place] - Effective on 11/27/2018. Expiration date unspecified Effective:27-Nov-2018 Name Dates Details Immunization Registry [place] - Effective on 11/27/2018. Expiration date unspecified Effective:27-Nov-2018 Name Dates Details Immunization Registry [place] - Effective on 11/27/2018. Expiration date unspecified Effective:27-Nov-2018 Name Dates Details Immunization Registry [place] - Effective on 11/27/2018. Expiration date unspecified Effective:27-Nov-2018 Advance Directive Response Recorded Date/ Time Advance Directives No January 09 20 9:41am Living Will No January 10, 2020 9:41am Power of Truck [employer] No January 09 0 9:41am Instructions Name Dates Details How to access health informa tion online - Detail Indication:Non-smoker Start:27-Nov-2018 Instruction Type:Patient Education How to access health informa tion online Indication:Non-smoker Start:27-Nov-2018 Instruction Type:Patient Education Patient Instructions Indication:Non-smoker Start:27-Nov-2018 Instruction Type:Provider Instructions for Treatment How to access health informa tion online Indication:BMI 29.0-29.9,adult Start:06-Dec-2016 Instruction Type:Patient Education How to access health informa tion online - Detail Indication:BMI 29.0-29.9,adult Start:06-Dec-2016 Instruction Type:Patient Education Patient Instructions Indication:BMI 29.0-29.9,adult Start:06-Dec-2016 Instruction Type:Provider Instructions for Treatment Patient Instructions Indication:Screening for HPV (human papillomavirus) (Renamed from Encounter for screening for human papillomavirus (HPV)) Start:18-Apr-2016 Instruction Type:Provider Instructions for Treatment Patient Instructions Indication:Well woman exam Start:26-Mar-2012 Instruction Type:Provider Instructions for Treatment Name Dates Details How to access health informa tion online - Detail Indication:Non-smoker Start:27-Nov-2018 Instruction Type:Patient Education How to access health informa tion online Indication:Non-smoker Start:27-Nov-2018 Instruction Type:Patient Education Patient Instructions Indication:Non-smoker Start:27-Nov-2018 Instruction Type:Provider Instructions for Treatment How to access health informa tion online Indication:BMI 29.0-29.9,adult Start:06-Dec-2016 Instruction Type:Patient Education How to access health informa tion online - Detail Indication:BMI 29.0-29.9,adult Start:06-Dec-2016 Instruction Type:Patient Education Patient Instructions Indication:BMI 29.0-29.9,adult Start:06-Dec-2016 Instruction Type:Provider Instructions for Treatment Patient Instructions Indication:Screening for HPV (human papillomavirus) (Renamed from Encounter for screening for human papillomavirus (HPV)) Start:18-Apr-2016 Instruction Type:Provider Instructions for Treatment Patient Instructions Indication:Well woman exam Start:26-Mar-2012 Instruction Type:Provider Instructions for Treatment Chief Complaint and Reason for Visit Chief Complaint Z78.0 Additional Source Comments INFORMATION SOURCE (unrecogn ized section and content) DATE CREATED AUTHOR 01/02/2018 [facility] DATE CREATED AUTHOR AUTHOR'S ORGANIZ ATION 09/22/2021 [facility] [place] DATE CREATED AUTHOR AUTHOR'S ORGANIZ ATION 04/19/2024 [facility] DATE CREATED AUTHOR AUTHOR'S ORGANIZ ATION 07/09/2024 [facility] Reason for Visit (unrecogniz ed section and content) Reason Onset Date Comments Referral 08/31/2021 Patient Care team informatio n (unrecognized section and content) Team Status: Active Member Role Status Dates Dr. Ivelisse Anderson , DO Family Provider Active Dr. Ivelisse Anderson , DO Primary Care Provider Active Team Status: Inactive Member Role Status Dates Dr. Ivelisse Anderson DO Primary Care Provider Active JEN Rush Attending Provider, Referring Pr mable Active Goals (unrecognized section and content) Goals may be documented in a n alternate section FOR RECORDS PERTAINING TO PATIENTS WHO ARE OR HAVE BEEN ENROLLED IN A CHEMICAL DEPENDENCY/SUBSTANCEABUSE PROGRAM, SOME INFORMATION MAY BE OMITTED. This clinical summary was aggregated from multiple sources. Caution should be exercised in using it in the provision of clinical care. This summary normalizes information from multiple sources, and as a consequence, information in this document may materially change the coding, format and clinical context of patient data. In addition, data may be omitted in some cases. CLINICAL DECISIONS SHOULD BE BASED ON THE PRIMARY CLINICAL RECORDS. [employer] provides no warranty or guarantee of the accuracy or completeness of information in this document.
[2025-03-27 02:05] LABS: Prothrombin Time (Protime)PT. 13.2 SECONDS (11.7-14.9)
[2025-03-27 02:06] LABS: Partial Thromboplast Time 25.3 Seconds (24.1-36.2)
[2025-03-27 02:25] VITALS: BP 151/68; PULSE 65; RESP 18; O2SAT 97
[2025-03-27 02:36] LABS: Anion Gap 13 (5-15); BUN 18 mg/dL (4-19); BUN/Creat Ratio 20.7 RATIO (10-20); Calcium,Total 9.1 mg/dL (7.6-11.0); Carbon Dioxide 23.2 mmol/L (21.0-32.0); Chloride 104 mmol/L (98-108); Estimated Creatinine Clearance 75.30 ml/min (50-250); Glucose 141 mg/dL (70-99); Magnesium 2.2 mg/dL (1.5-2.2); Potassium 4.0 mmol/L (3.3-5.1); Pro- Brain NATRIURETIC PEPTIDE 155 pg/mL (<=900); Troponin T High Sensitivity < 6 ng/L (<=14)
[2025-03-27 03:09] VITALS: BP 164/84; PULSE 56; RESP 18; TEMP 36.6; O2SAT 97
== END 2025-03-27 03:26 | disposition home or self-care (01) ==
PROVIDERS: Emergency Provider Surgery; PCP Internal Medicine; Visit Provider Surgery
DX: R00.2 Palpitations (principal); I48.0 Paroxysmal atrial fibrillation; E78.5 Hyperlipidemia, unspecified; Z79.01 Long term (current) use of anticoagulants
CPT/HCPCS: 71046; 80048; 83735; 83880; 84484; 85025; 85610; 85730; 93005; 99284; A4216

== ENCOUNTER → 2025-06-04 | Outpatient (CLI) | payer OTHER, SELFPAY ==
[2025-06-04 12:50] LABS: Anion Gap 10 (5-15); BUN 18 mg/dL (4-19); BUN/Creat Ratio 20.4 RATIO (10-20); Calcium,Total 9.7 mg/dL (7.6-11.0); Carbon Dioxide 27.2 mmol/L (21.0-32.0); Chloride 105 mmol/L (98-108); Glucose 142 mg/dL (70-99); Potassium 4.4 mmol/L (3.3-5.1)
== END | disposition home or self-care (01) ==
LOC: LAB 11:29
PROVIDERS: PCP Internal Medicine; Referring Provider Internal Medicine Cardiovascular Disease; Visit Provider Internal Medicine Cardiovascular Disease
DX: I48.0 Paroxysmal atrial fibrillation (principal)
CPT/HCPCS: 36415; 80048; 84443

== ENCOUNTER → 2025-06-29 | Outpatient (CLI) | payer OTHER, SELFPAY ==
--- NOTE | 2025-06-29 08:00 | ECHOD_ITS ---
Reason For Study Reason For Study: Arrhythmia Procedure This was a 2D Doppler, Color Flow transthoracic echocardiogram. Exam performed in department. Left Ventricle Normal LV size. The left ventricular ejection fraction is 65 %. No regional wall motion abnormalities noted. Right Ventricle Normal RV size. Normal systolic function. Atria Normal left atrium. Normal right atrium. Mitral Valve Normal mitral valve. Mild (1+) eccentric mitral valve insufficiency. Tricuspid Valve Normal tricuspid valve. Mild (1+) tricuspid valve insufficiency. Pulmonary artery systolic pressure is 34 mmHg. Aortic Valve Normal aortic valve. Pulmonic Valve Normal pulmonic valve. Great Vessels Normal aortic root. The pulmonary artery is normal size. Inferior vena cava collapse with respiration. Pericardium/Pleural No pericardial effusion. MMode/2D Measurements & Calculations LVIDd: 4.7 cm IVSd: 1.1 cm Ao root diam: 2.6 cm LVIDs: 2.9 cm LVPWd: 0.95 cm RVDd: 2.9 cm FS: 38.7 % LAV(MOD-bp): 34.7 ml LVAd ap4: 27.1 cm2 SV(MOD-sp4): 49.2 ml LAV(MOD-bp) Indexed: 17.4 ml/m2 LVLd ap4: 7.8 cm SI(MOD-sp4): 24.6 ml/m2 LAV(MOD-sp2): 29.4 ml EDV(MOD-sp4): 77.1 ml LAV(MOD-sp4): 31.1 ml EDV(sp4-el): 80.2 ml LVAs ap4: 14.7 cm2 LVLs ap4: 6.4 cm ESV(MOD-sp4): 27.9 ml ESV(sp4-el): 28.3 ml EF(MOD-sp4): 63.8 % EF(sp4-el): 64.7 % SV(sp4-el): 51.9 ml LA A4 area: 14.6 cm2 LA dimension(2D): 3.6 cm RA A4 area: 11.8 cm2 TAPSE: 2.1 cm Time Measurements MV dec time: 0.17 sec Doppler Measurements & Calculations MV E max gilberto: 88.1 cm/sec Lat Peak E' Gilberto: 10.2 cm/sec Med Peak E' Gilberto: 7.9 cm/sec MV A max gilberto: 68.5 cm/sec E/E' lat: 8.7 E/E' med: 11.2 MV E/A: 1.3 Ao V2 max: 132.1 cm/sec LV V1 max: 95.4 cm/sec MV dec slope: 519.4 cm/sec2 Ao max P.0 mmHg LV V1 max P.6 mmHg Ao V2 mean: 101.0 cm/sec LV V1 mean P.2 mmHg Ao mean P.3 mmHg LV V1 mean: 68.8 cm/sec Ao V2 VTI: 31.9 cm LV V1 VTI: 27.4 cm AV (velocity ratio): 0.86 PA V2 max: 93.6 cm/sec PI end-d gilberto: 84.4 cm/sec TR max gilberto: 274.6 cm/sec TR max P.2 mmHg ECHO/Echo Complete Interpretation Summary The left ventricular ejection fraction is 65 %. Normal LV size. Mild (1+) eccentric mitral valve insufficiency. Mild (1+) tricuspid valve insufficiency. Pulmonary artery systolic pressure is 34 mmHg. Ordering Physician: Curt Meredith Referring Physician: Ivelisse Vela Performed By: Luda Hendrickson RDCS, RVT
== END | disposition home or self-care (01) ==
LOC: CVS 07:56
PROVIDERS: PCP Internal Medicine; Referring Provider Internal Medicine Cardiovascular Disease; Visit Provider Internal Medicine Cardiovascular Disease
DX: I48.0 Paroxysmal atrial fibrillation (principal)
CPT/HCPCS: 93306